=== PATIENT | female | born 1935 | race Caucasian/White ===

== ENCOUNTER 2019-09-04 09:02 | Outpatient (CLI) | payer MEDICARE, SELFPAY ==
--- NOTE | ~2019-09-04 | XR_ITS ---
EXAMINATION: XR barium swallow modified DATE: 09/04/2019 09:43 INDICATION: Dysphagia. TECHNIQUE: The patient was given barium-containing material of multiple consistencies to swallow by lesly bustos speech pathologist while I performed fluoroscopy. Dose-area product was 0.542 Gy-cm2. 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 Please refer to the speech [facility] report [facility] Reviewed, dictated and finalized at [facility]. Reviewed, dictated and finalized at location [facility]. RONMENTAL PROFESSIONAL IMPRESSION: Modified esophagram findings as above. Please refer to the speech t herapy report for specific recommendations.
--- NOTE | 2019-09-04 11:31 | STOPEVAL ---
MODIFIED BARIUM SWALLOW EVALUATION: Thank you for referring this patient to [facility]. Attending Provider: Sebastián Logan MD FAX # [phone] *ST Outpatient Evaluation Start: 09/04/19 11:24 Freq: Status: Active Protocol: Document 09/04/19 11:24 BECHERERT (Rec: 09/04/19 11:31 BECHERERT [id number]) Therapy Assessment Status Assessment Status Assessment Status Evaluation Outpatient Past Medical History Neurological History Hx Transient Ischemic Attacks (TIA) Yes: Cardiovascular History Hx Deep Vein Thrombosis Yes: ARM Hx Hypercholesterolemia Yes: TAKES MED Hx Hypertension Yes: TAKES MEDS Respiratory History Hx Bronchitis Yes: CHRONIC Hx Pleurisy Yes: 09/2018 Hx Pneumonia Yes: HX Gastrointestinal History Hx Gastroesophageal Reflux Disease Yes: TAKES MED Hx Irritable Bowel Yes: WITH DIARRHEA AND CONSTIPATION Hx Other Gastrointestinal Disorders Yes: HX COLONOSCOPY Genitourinary History Hx Other Genitourinary Disorders Yes: SLOW STREAM Musculoskeletal History Hx Arthritis Yes: LT HIP PAIN Hx Gout Yes Hx Joint Replacement Yes: LTHA 1988 AND 2005, RTKA 2016 Hx Orthopedic Surgery Yes: ORIG LT ANKLE 1992, REMOVAL HARDWARE 1994 Hematological History Hx Hematological Disorders No Significant History Endocrine History Hx Diabetes Yes: NIDDM HEENT History Hx Cataracts Yes: BILAT SURG. Hx Tonsillectomy Yes Hx Sinus Problems Yes: CHRONIC Hx Other HEENT Disorders Yes: EXC.EYELID GROWTH Integumentary History Hx Skin Disorders No Significant History Reproductive History Hx Hysterectomy Yes: 1974 Hx Other Reproductive Disorders Yes: D&C X8, EXC.BARTHOLINS CYST, BREAST BX X4 Psychosocial History Hx Psychiatric Disorders No Significant History Pain History Has Past Pain Affected Your Daily Life Yes: LT HIP Anesthesia History Hx Anesthesia Reactions No Significant History Evaluation Information Problem Diagnosis dysphagia Onset several months Subjective Information I feel like something is Query Text:As Reported By Patient/ stuck on the left side of my Family throat. Prior Level of Function Prior Swallow Level Prior Intake Method Oral Prior Diet Regular (Level 7 Diet) Prior Liquid Consistency Thin (Level 0 Diet) Pain Assessment Timing of Pain Assessment Timing of Pain Assessment Assessment Self Report Self Report Pain Level 0 Pain Scale Pain Scale Used Numeric (1 - 10) Pain Score Pain Score
== END 2019-09-04 09:03 | disposition home or self-care (01) ==
LOC: ANHIMG 09:06
PROVIDERS: PCP Family Medicine; Visit Provider Internal Medicine Gastroenterology
DX: R13.10 Dysphagia, unspecified (principal)
CPT/HCPCS: 92611

== ENCOUNTER 2019-09-18 00:26 | Day surgery (SDC) | payer MEDICARE, SELFPAY ==
[2019-09-16 09:06] VITALS: BMI 37.0
[2019-09-18 07:46] VITALS: BP 148/67; PULSE 61; RESP 18; TEMP 36.4; O2SAT 96
[2019-09-18] MEDS: LACTATED RINGERS 1,000 ML 150 ML IV CONT (07:49)
[2019-09-18 08:00] LABS: Glucose Point of Care 115 (65-105)
--- NOTE | 2019-09-18 08:31 | WPDGICN ---
Assessment and Plan Additional Plan This is an 84-year-old white female patient seen in evaluation at the request Dr. Francy Pérez. Patient has difficulty swallowing for several months. She noticed difficulty with both solids and liquids. She feels like food will hang up on the left side of her throat she states some difficulty is been present for about 1 year. Symptoms occur intermittently. When the food hangs up at often causes her to cough gag and show recent modified barium swallow was unremarkable. Patient denies any Weight loss. Patient has a recent history of bronchitis and pleurisy. She had the flu in September of 2018. She recently had procedure by Dr. brennan matthews for chronic sinusitis. She has allergies to latex, Naprosyn, morphine, hydrocortisone, Current medications include Plavix, probiotics, levothyroxine, omeprazole, Onglyza, and propranolol. Physical exam reveals patient to be alert. Oriented x3. HEENT exam reveals deficient gag reflex on the left side of her pharynx. Heart is without murmur or extra sounds. Lungs are clear to auscultation and percussion. Abdominal exam bowel sounds are present soft nontender with no hepatosplenomegaly. Digital external rectal exam deferred day of exam. Impression 1. Dysphagia. 2. Poor gag reflex. Suspect the gag reflex deficiency may contribute to her dysphagia. Recent modified barium swallow was felt to be normal. Plan is for EGD to exclude narrowing of the esophagus. Further recommendations will be given after endoscopy. GI Consult Note Consult date/time: 09/18/19 08:31 HPI: Devon Iraheta is a 84 year old female [facility] Past Medical History Medical History (Updated 08/12/19 @ 09:12 by Rigoberto Apodaca DO) Chronic bronchitis Diabetes type 2, controlled DVT (deep venous thrombosis) 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 Was told no IV or BP in right arm due to damage done by DVT GERD (gastroesophageal reflux disease) Hyperlipidemia Hypertension TIA (transient ischemic attack) Social History Social History Gender identity (if verbalized by the patient): Female Meds Home Medications and Allergies Home Medications Medication Instructions Recorded Confirmed Type Daily Probiotic 1 cap PO DAILY 08/05/19 09/16/19 History Onglyza 2.5 mg PO DAILY 08/05/19 09/16/19 History allopurinol 100 mg PO DAILY 08/05/19 09/16/19 History amlodipine 5 mg PO HS 08/05/19 09/16/19 History aspirin 81 mg PO DAILY 08/05/19 09/16/19 History biotin 1,000 mcg PO DAILY 08/05/19 09/16/19 History cholecalciferol (vitamin D3) 125 mcg PO DAILY 08/05/19 09/16/19 History [Dialyvite Vitamin D] clopidogrel [Plavix] 75 mg PO DAILY 08/05/19 09/16/19 History levothyroxine 50 mcg PO DAILY 08/05/19 09/16/19 History multivitamin [Multiple Vitamins] 1 tablet PO DAILY 08/05/19 09/16/19 History omeprazole 40 mg PO DAILY 08/05/19 09/16/19 History propranolol 120 mg PO DAILY 08/05/19 09/16/19 History acetaminophen-codeine 1 tablet PO Q8H PRN #30 tablet 08/12/19 09/16/19 Rx [Tylenol-Codeine #3] Allergies Allergy/AdvReac Type Severity Reaction Status Date / Time propoxyphene AdvReac Severe NAUSEA Verified 09/16/19 09:00 latex AdvReac Intermediate RED Verified 09/16/19 09:00 BUMPS/ITCH naproxen AdvReac Intermediate NAUSEA/DIZZ Verified 09/16/19 09:00 INESS/RASH morphine AdvReac Mild RASH/ITCHIN Verified 09/16/19 09:00 G thiopental AdvReac Mild INCREASES Verified 09/16/19 09:00 CHOLESTEROL (REVERSE EFFECT) hydrocodone AdvReac Unknown NAUSEA/RASH Verified 09/16/19 09:00 /HEADACHE Vital Signs Vital Signs - 24 hr 09/18/19 07:46 Temperature 36.4 C L Pulse Rate 61 Respiratory Rate 18 Blood Pressure 148/67 H Pulse Oximetry 96
--- NOTE | 2019-09-18 08:32 | WPDANESEPPF ---
Anes - Initial Pre Proc Eval Procedure: Operation Date: 09/18/19 08:30 Proposed Procedures p Esophagogastroduodenoscopy - Sebastián Logan MD Date/Time: 09/18/19 08:32 Surgeon: Sebastián Logan MD Pre Op Diagnosis: Dysphagia Patient Data Age: 84 Gender: F Height: 5 ft 3 in Weight: 96.1 kg Last Vital Signs Temp 97.5 F L 09/18/19 07:46 Pulse 61 09/18/19 07:46 Resp 18 09/18/19 07:46 BP 148/67 H 09/18/19 07:46 Pulse Ox 96 09/18/19 07:46 Allergies Allergy/AdvReac Type Severity Reaction Status Date / Time propoxyphene AdvReac Severe NAUSEA Verified 09/16/19 09:00 latex AdvReac Intermediate RED Verified 09/16/19 09:00 BUMPS/ITCH naproxen AdvReac Intermediate NAUSEA/DIZZ Verified 09/16/19 09:00 INESS/RASH morphine AdvReac Mild RASH/ITCHIN Verified 09/16/19 09:00 G thiopental AdvReac Mild INCREASES Verified 09/16/19 09:00 CHOLESTEROL (REVERSE EFFECT) hydrocodone AdvReac Unknown NAUSEA/RASH Verified 09/16/19 09:00 /HEADACHE Home Medications Medication Instructions Recorded Confirmed Type Daily Probiotic 1 cap PO DAILY 08/05/19 09/16/19 History Onglyza 2.5 mg PO DAILY 08/05/19 09/16/19 History allopurinol 100 mg PO DAILY 08/05/19 09/16/19 History amlodipine 5 mg PO HS 08/05/19 09/16/19 History aspirin 81 mg PO DAILY 08/05/19 09/16/19 History biotin 1,000 mcg PO DAILY 08/05/19 09/16/19 History cholecalciferol (vitamin D3) 125 mcg PO DAILY 08/05/19 09/16/19 History [Dialyvite Vitamin D] clopidogrel [Plavix] 75 mg PO DAILY 08/05/19 09/16/19 History levothyroxine 50 mcg PO DAILY 08/05/19 09/16/19 History multivitamin [Multiple Vitamins] 1 tablet PO DAILY 08/05/19 09/16/19 History omeprazole 40 mg PO DAILY 12/31/19 02/11/20 History propranolol 120 mg PO DAILY 08/05/19 09/16/19 History acetaminophen-codeine 1 tablet PO Q8H PRN #30 tablet 08/12/19 09/16/19 Rx [Tylenol-Codeine #3] Laboratory Tests 09/18/19 07:58 POC Capillary Glucose 115 mg/dl H mg/dl (65-105) Patient hx anesthesia problems: none Family hx anesthesia problems: none [facility] Past Medical History Medical History (Updated 08/12/19 @ 09:12 by Rigoberto Apodaca DO) Chronic bronchitis Diabetes type 2, controlled DVT (deep venous thrombosis) 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 Was told no IV or BP in right arm due to damage done by DVT GERD (gastroesophageal reflux disease) Hyperlipidemia Hypertension TIA (transient ischemic attack) Social History Social History Gender identity (if verbalized by the patient): Female Anes - Eval Final PreProcedure Day of Procedure 09/18/19 08:32 Patient weight: obese Heart: regular rate and rhythm Lungs: clear to auscultation Airway: Mallampati scale class II Neurological: alert and oriented Last oral intake: >/= 8 hours ASA classification: III Emergent: no Anesthetic plan: proceed Anesthesia type and monitoring: general GIVS and standard monitoring Informed Consent: The patient's anesthetic plan and its attendant risks and benefits were discussed with the patient/family/POA. Questions were solicited and answers provided to the satisfaction of the patient/family/POA.
[2019-09-18] MEDS: BENZOCAINE (*SP) 60 ML SPRAY CAN (HURRICAINE) 1 SPRAY MUCOUS MEM (08:48)
[2019-09-18 08:57] VITALS: BP 115/44; PULSE 61; RESP 18; O2SAT 99
[2019-09-18 09:07] VITALS: BP 120/67; PULSE 63; RESP 18; O2SAT 99
[2019-09-18 09:17] VITALS: BP 122/48; PULSE 60; RESP 18; O2SAT 99
== END 2019-09-18 09:40 | disposition home or self-care (01) ==
PROVIDERS: PCP Family Medicine; Visit Provider Internal Medicine Gastroenterology
PROC: 0DJ08ZZ Inspection of Upper Intestinal Tract, Via Natural or Artificial Opening Endoscopic (ICD-10-PCS; CPT 43235; principal; 2019-09-18 08:30)
DX: R13.10 Dysphagia, unspecified (principal); K21.9 Gastro-esophageal reflux disease without esophagitis; I10 Essential (primary) hypertension; E78.5 Hyperlipidemia, unspecified; E11.9 Type 2 diabetes mellitus without complications; J42 Unspecified chronic bronchitis; Z86.73 Personal history of transient ischemic attack (TIA), and cerebral infarction without residual deficits; Z79.02 Long term (current) use of antithrombotics/antiplatelets; Z79.82 Long term (current) use of aspirin; E66.9 Obesity, unspecified; Z68.37 Body mass index [BMI] 37.0-37.9, adult
CPT/HCPCS: 43235; J2704; J7120

== ENCOUNTER 2019-10-14 07:29 | Outpatient (CLI) | payer MEDICARE, SELFPAY ==
--- NOTE | ~2019-10-14 | US_ITS ---
EXAMINATION: US right upper quadrant DATE: 10/14/2019 08:19 INDICATION: Liver mass. Abnormal CT. TECHNIQUE: Multiple grayscale and Doppler ultrasound images of the abdomen were obtained. COMPARISON: Abdomen ultrasound 12/14/2004 FINDINGS: The visualized portions of the head and body of the pancreas are normal. There is diffuse h epatic steatosis. There are cysts in the liver measuring up to 1.7 cm. There is normal flow in main p ortal vein. There are gallstones in the gallbladder, which is normal in size. No gallbladder wall thi ckening or sonographic Romero sign. The common duct is normal and measures 6 mm. IMPRESSION: 1. Benign cysts in the liver. 2. Diffuse hepatic steatosis. 3. Cholelithiasis. No evidence of acute cholecystitis. Reviewed, dictated and finalized at location [facility].
== END 2019-10-14 07:30 | disposition home or self-care (01) ==
PROVIDERS: PCP Family Medicine; Visit Provider Internal Medicine Gastroenterology
DX: K76.0 Fatty (change of) liver, not elsewhere classified (principal); K80.20 Calculus of gallbladder without cholecystitis without obstruction
CPT/HCPCS: 76705

== ENCOUNTER 2020-04-13 03:40 | Inpatient (IN) | payer MEDICARE, SELFPAY ==
[2020-04-13] VITALS (7 sets, daily range): BP systolic 137–157; BP diastolic 48–79; PULSE 60–67; RESP 12–18; TEMP 36.1–36.6; O2SAT 96–100; BMI 36.9
--- NOTE | ~2020-04-13 | XR_ITS ---
EXAMINATION: XR cholangiogram surg 1st inj DATE: 04/14/2020 12:54 INDICATION: Laparoscopic cholecystectomy TECHNIQUE: 306 fluoroscopic images of the right upper quadrant were obtained during intraoperative ch olangiography performed by the surgeon. I was not present in the operating room. Fluoroscopy exposure time was 49.3 seconds. COMPARISON: None. FINDINGS: Fluoroscopic images demonstrate a mildly dilated common bile duct. There is mild stricturin g of the distal duct as it enters the duodenum. No stones are identified. IMPRESSION: 1. Case discussed with Dr. Urena in the operating room. Reviewed, dictated and finalized at location B.
--- NOTE | ~2020-04-13 | NM_ITS ---
EXAMINATION: [place] hepatobiliary wo pharm EXAM DATE: 04/13/2020 16:25 INDICATION: Sonographic Romero's sign ultrasound. Right upper quadrant pain. TECHNIQUE: 5 mCi Tc-99m mebrofenin (Choletec) was administered intravenously. Scintigraphic images o f the abdomen were obtained for one hour. An additional 4 hour delayed image was also obtained. FINDINGS: There is normal clearance of radiotracer from the blood pool. There is homogeneous tracer u ptake by the liver. No common bile duct activity, gallbladder activity or small bowel activity identi fied on the initial 60 minutes of imaging and also on the 4 hour delayed image. This is consistent wi th high-grade common bile duct obstruction. IMPRESSION: Nonfilling biliary system consistent with high-grade common bile duct obstruction. Reviewed, dictated and finalized at location A. IMPRESSION: Nonfilling biliary system consistent with high-grade common bile du ct obstruction.
--- NOTE | ~2020-04-13 | CT_ITS ---
EXAMINATION: CT abdomen pelvis w con INDICATION: Right upper quadrant pain TECHNIQUE: Computed tomographic images of the abdomen and pelvis were obtained after the administrati on of 100 cc of Omnipaque 350 intravenous contrast. The dose-length product (DLP) was 1169.68 mGy-cm. Automated exposure control and iterative reconstruction technique were employed. COMPARISON: None available FINDINGS: Minimal dependent atelectasis is present in the lung bases. The heart size is normal. Cysts of the liver measure up to 1.8 cm in the right hepatic lobe. Punctate calcifications in an otherwise normal spleen likely represent healed granulomatous disease. The gallbladder is dilated. The common bile duct is also dilated measuring up to 11 mm. There is a 6 mm cystic lesion in the body of the chopra creas. There are nodules of the adrenal glands which measure up to 1.8 cm on the left. Cysts of the l eft kidney measure up to 2.6 cm. The right kidney is unremarkable. There is calcified atherosclerosis of the aorta and many of the other arteries. The appendix is normal. No pathologically enlarged abdo lennox or pelvic lymph nodes are identified. There is no free intraperitoneal gas or evidence of bowel obstruction. There appears to be wall thickening in the body of the stomach. There is severe lumbar spondylosis. IMPRESSION: 1. Gallbladder distention, indeterminate for cholecystitis. Follow-up ultrasound has been performed a t the time of interpretation. 2. 6 mm cystic lesion in the body of the pancreas. The differential diagnosis includes pseudocyst, in traductal papillary mucinous neoplasm (IPMN), mucinous cystic neoplasm (MCN), and the less common ser ous cystadenoma and neuroendocrine tumor. Correlate for history of pancreatitis. Follow-up pancreas p rotocol CT or MRI in two years is recommended. 3. Mildly enlarged common bile duct of unclear etiology. 4. Possible gastric wall thickening which could be due to incomplete distention. Consider upper GI or endoscopy. 5. Bilateral adrenal nodules, likely adenomas in the absence of known malignancy. Reviewed, dictated and finalized at location B. IMPRESSION: 1. Gallbladder distention, indeterminate for cholecystitis. Follow-up ultrasoun d has been performed at the time of interpretation. 2. 6 mm cystic lesion in the body of the pancreas. The differential diagnosis i ncludes pseudocyst, intraductal papillary mucinous neoplasm (IPMN), mucinous cy stic neoplasm (MCN), and the less common serous cystadenoma and neuroendocrine tumor. Correlate for history of pancreatitis. Follow-up pancreas protocol CT or MRI in two years is recommended. 3. Mildly enlarged common bile duct of unclear etiology. 4. Possible gastric wall thickening which could be due to incomplete distention . Consider upper GI or endoscopy. 5. Bilateral adrenal nodules, likely adenomas in the absence of known malignanc y.
--- NOTE | ~2020-04-13 | US_ITS ---
EXAMINATION: [place] right upper quadrant DATE: 04/13/2020 07:48 INDICATION: Right upper quadrant abdominal pain. TECHNIQUE: Multiple grayscale and Doppler ultrasound images of the abdomen were obtained. COMPARISON: 10/14/[address] dated 04/13/2020 FINDINGS: 6 mm cystic lesion at the body of the pancreas. Liver has normal echogenicity and contour, with a smo oth surface. 13 mm anechoic septated cyst in the right hepatic lobe. No intrahepatic biliary duct dil ation suspected. Portal venous flow was seen in the hepatopetal, normal direction and has normal Dopp ler waveform. Gallbladder is dilated to 4.3 cm with mild wall thickening. There are couple tiny hyper echoic foci with comet tailing along the nondependent gallbladder wall consistent with focal adenomyo matosis. There multiple shadowing gallstones at the neck and along the dependent wall of the gallblad petrona. Sonographic Romero sign was reported as positive by the grails web application developer. The common bile duct measur es up to 6 mm diameter which is normal which is decreased since the recent CT at which time it measur ed 10 mm in diameter. The visualized proximal inferior vena cava is normal. IMPRESSION: 1. Mildly dilated gallbladder with mild wall thickening, cholelithiasis and positive sonographic Murp hy's and consistent with acute cholecystitis. 2. 6 mm cystic lesion at the body of the pancreas. Recommend two-year follow-up pre and postcontrast MRI or pancreas protocol CT. Reviewed, dictated and finalized at location A. IMPRESSION: 1. Mildly dilated gallbladder with mild wall thickening, cholelithiasis and pos itive sonographic Romero's and consistent with acute cholecystitis. 2. 6 mm cystic lesion at the body of the pancreas. Recommend two-year follow-up pre and postcontrast MRI or pancreas protocol CT.
[2020-04-13] MEDS: SODIUM CHLORIDE 0.9% IV 500 ML 999 ML IV CONT (04:13)
[2020-04-13] MEDS: ONDANSETRON INJ 4 MG/2 ML VIAL IV PUSH ×2 (04:13→08:22)
[2020-04-13 04:19] LABS: Basophils Absolute Auto 0.1 K/mm3 (0.0-0.1); Basophils Percent Auto 0.4 % (0.2-1.2); Eosinophils Absolute Auto 0.1 K/mm3 (0-0.3); Eosinophils Percent Auto 0.7 % (0-4.4); Hematocrit 39.2 % (37.0-47.0); Hemoglobin 12.7 g/dL (12.0-15.0); Immature Granulocyte Absolute 0.08 K/mm3 (0.00-0.031); Immature Granulocyte Percent A 0.5 % (0-0.5); Lymphocytes Absolute Auto 2.36 K/mm3 (0.9-3.2); Lymphocytes Percent Auto 15.5 % (18.3-44.2); Mean Corpuscular HGB Conc 32.4 g/dl (32-36); Mean Corpuscular Hemoglobin 32.5 pg (26-34); Mean Corpuscular Volume 100.3 fl (80-100); Monocytes Absolute Auto 0.7 K/mm3 (0.1-0.6); Monocytes Percent Auto 4.3 % (2.6-8.5); Neutrophils Percent Auto 78.6 % (45.5-73.1); Platelet Count Result 274 k/mm3 (150-375); Red Blood Count 3.91 M/mm3 (4.2-5.4); Red Cell Distribution Width 13.6 % (11.5-14.5); White Blood Count 15.3 K/mm3 (4.5-10.0)
[2020-04-13 04:33] LABS: Alanine Aminotransferase 77 U/L (4-35); Albumin Level 4.2 g/dL (3.5-5.1); Alkaline Phosphatase 103 U/L (38-126); Anion Gap 8 mmol/L (8-16); Aspartate Amino Transferase 212 U/L (14-36); Bilirubin,Total 0.7 mg/dL (0.2-1.3); Blood Urea Nitrogen 22 mg/dL (7-17); Calcium 9.1 mg/dL (8.4-10.2); Carbon Dioxide 27 mmol/L (22-30); Chloride 102 mmol/L (98-107); Estimated Glomerular Filt Rate 48; Glucose 149 mg/dL (65-105); Lipase 199 U/L (23-300); Sodium 137 mmol/L (137-145)
--- NOTE | 2020-04-13 04:55 | ED.GENADULT ---
HPI - General Adult General Chief complaint: Nausea/Vomiting/Diarrhea Stated complaint: nausea Time Seen by Provider: 04/13/20 03:50 History of Present Illness HPI narrative: Patient is an 84-year-old female who presents the ER with epigastric pain. Sudden onset earlier in the evening. Associated with some nausea and vomiting. No fevers or chills or sweats. Has history of cholelithiasis but has never had pain related to this. Reports she feels a band across her upper abdomen going into her back. She has no alleviating factors. It was not associated with eating. Patient did have a all beef hotdog for dinner and then had had a hamburger earlier in the day. She also had some cake. Related Data Home Medications Medication Instructions Recorded Confirmed Daily Probiotic 1 cap PO DAILY 08/05/19 09/16/19 Onglyza 2.5 mg PO DAILY 08/05/19 09/16/19 allopurinol 100 mg PO DAILY 08/05/19 09/16/19 amlodipine 5 mg PO HS 08/05/19 09/16/19 aspirin 81 mg PO DAILY 08/05/19 09/16/19 biotin 1,000 mcg PO DAILY 08/05/19 09/16/19 cholecalciferol (vitamin D3) 125 mcg PO DAILY 08/05/19 09/16/19 [Dialyvite Vitamin D] clopidogrel [Plavix] 75 mg PO DAILY 08/05/19 09/16/19 levothyroxine 50 mcg PO DAILY 08/05/19 09/16/19 multivitamin [Multiple Vitamins] 1 tablet PO DAILY 08/05/19 09/16/19 omeprazole 40 mg PO DAILY 08/05/19 09/16/19 propranolol 120 mg PO DAILY 08/05/19 09/16/19 Allergies Allergy/AdvReac Type Severity Reaction Status Date / Time propoxyphene AdvReac Severe NAUSEA Verified 04/13/20 04:06 latex AdvReac Intermediate RED Verified 04/13/20 04:06 BUMPS/ITCH naproxen AdvReac Intermediate NAUSEA/DIZZ Verified 04/13/20 04:06 INESS/RASH morphine AdvReac Mild RASH/ITCHIN Verified 04/13/20 04:06 G thiopental AdvReac Mild INCREASES Verified 04/13/20 04:06 CHOLESTEROL (REVERSE EFFECT) hydrocodone AdvReac Unknown NAUSEA/RASH Verified 04/13/20 04:06 /HEADACHE Review of Systems Review of Systems: All systems reviewed & are unremarkable except as noted in HPI and below Constitutional: Constitutional: Denies chills, Denies fever(s) and Denies weakness ENT: Denies nasal congestion and Denies sore throat Cardiovascular: Cardiovascular: Denies chest pain and Denies radiating jaw, neck or arm pain Gastrointestinal: Gastrointestinal: Reports abdominal pain, Denies diarrhea, Reports nausea and Reports vomiting Genitourinary: Genitourinary: Denies nocturia, Denies dysuria and Denies flank pain PMFSH Past Medical History Medical History (Updated 04/13/20 @ 06:04 by Presley Calix MD) Chronic bronchitis Diabetes type 2, controlled DVT (deep venous thrombosis) 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 Was told no IV or BP in right arm due to damage done by DVT GERD (gastroesophageal reflux disease) Hyperlipidemia Hypertension TIA (transient ischemic attack) Surgical History Surgical History (Updated 04/13/20 @ 04:58 by Presley Calix MD) History of left hip replacement Hx of tonsillectomy Social History Social History Gender identity (if verbalized by the patient): Female Exam Narrative: Exam Narrative: GENERAL: Well-appearing, well-nourished, and in no acute distress. HEAD: Normocephalic, atraumatic. ENT: Mucous membranes moist. CHEST: Clear to auscultation. No respiratory distress. HEART: Regular rate and rhythm. Normal peripheral pulses. ABDOMEN: Soft, tender palpation in the epigastrium with guarding and positive Romero sign and right upper quadrant, nondistended. EXTREMITIES: Normal range of motion. No edema. SKIN: Warm, dry, no rash. NEURO: Alert and oriented x3. Course Course Emergency Course: Patient with persistent pain after fentanyl. Liver enzymes elevated which could be related to gallbladder pathology. CT scan shows severe wall thickening of the stomach and dilated common bile duct. Patient had an EGD earlier this year that showed a normal stomach. Stomach wall thickening
--- NOTE | 2020-04-13 05:48 | PC.NURSE ---
pt sleeping on stretcher at this time. pt's daughter remains at bedside-updated on poc, denies any needs/concerns. pt remains hooked up to monitor. will continue to monitor pt for baseline status changes.
--- NOTE | 2020-04-13 08:10 | PC.NURSE ---
This patient, Devon Iraheta, was admitted to Medical Room 346-01. Patient/family oriented to hospital policies and general routines including ID bracelet, bed and alarms, visiting hours, pain management, procedures, bathroom and other care routines, personal items, smoking policy, room service/diet, and visiting hours. Valuables list has been completed. Information on how to activate the Rapid Response Team has been discussed. Patient/Family are encouraged to report perceived risks to care and to ask questions if they do not understand what they are told or what they should do.
[2020-04-13] MEDS: SODIUM CHLORIDE 0.9% IV 1,000 ML 125 ML IV CONT ×2 (08:19→17:08)
--- NOTE | 2020-04-13 09:04 | WPDGICN ---
Assessment and Plan Assessment and plan (1) Gastric wall thickening: Code(s): K31.89 - Other diseases of stomach and duodenum Status: Acute Assessment and Plan: CT scan suggest gastric wall thickening. The etiology of this remains somewhat unclear. EGD in September was unremarkable. Plan is for repeat EGD in the morning. We will maintain patient on proton pump inhibitor. Differential diagnosis includes infection or ulceration. Versus malignancy which is felt unlikely. (2) Acute upper abdominal pain: Code(s): R10.10 - Upper abdominal pain, unspecified Status: Acute Assessment and Plan: Abdominal pain of uncertain etiology. A long with abnormal CT scan suggesting thick stomach she has elevated LFTs and gallstones. Plan is for a HIDA scan to exclude cholecystitis. Continue monitor LFTs. Hepatitis serologies will be obtained. (3) Gallstones: Code(s): K80.20 - Calculus of gallbladder without cholecystitis without obstruction Status: Acute Assessment and Plan: Gallstones noted by ultrasound. Along with LFTs make this is somewhat of a concern. HIDA scan will be obtained to exclude cholecystitis. Patient does indeed have leukocytosis suggesting inflammatory process. (4) Elevated LFTs: Code(s): R79.89 - Other specified abnormal findings of blood chemistry Status: Acute Assessment and Plan: Elevated LFTs. Plan is check HIDA scan. This may be related to cholelithiasis. Plan to exclude cholecystitis. Patient gives no alcohol history. Will monitor and obtain hepatitis serologies as well. GI Consult Note Consult date/time: 04/13/20 09:04 HPI: Devon Iraheta is a 84 year old female Seen in evaluation at the request of the emergency room. Patient reports epigastric pain that began last evening. Associated with some nausea and vomiting. She denies any fever. This pain is new she has never had this pain before. She is known to have underlying history of gallstones. She states last evening 8 hot dog for dinner and a hamburger earlier in the day. But nothing unusual for her. She feels somewhat improved on at the time I history because she had received pain injection in the emergency room. Patient reports no recent difficulty swallowing. An EGD in September of 2019 was unremarkable. Review of Systems Review of Systems: All systems reviewed & are unremarkable except as noted in HPI and below PMFSH Past Medical History Medical History Chronic bronchitis Diabetes type 2, controlled DVT (deep venous thrombosis) 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 Was told no IV or BP in right arm due to damage done by DVT GERD (gastroesophageal reflux disease) Hyperlipidemia Hypertension TIA (transient ischemic attack) Surgical History Surgical History History of left hip replacement Hx of tonsillectomy Social History Social History Gender identity (if verbalized by the patient): Female Meds Home Medications and Allergies Home Medications Medication Instructions Recorded Confirmed Type Daily Probiotic 1 cap PO DAILY 08/05/19 09/16/19 History Onglyza 2.5 mg PO DAILY 08/05/19 09/16/19 History allopurinol 100 mg PO DAILY 08/05/19 09/16/19 History amlodipine 5 mg PO HS 08/05/19 09/16/19 History aspirin 81 mg PO DAILY 08/05/19 09/16/19 History biotin 1,000 mcg PO DAILY 08/05/19 09/16/19 History cholecalciferol (vitamin D3) 125 mcg PO DAILY 08/05/19 09/16/19 History [Dialyvite Vitamin D] clopidogrel [Plavix] 75 mg PO DAILY 08/05/19 09/16/19 History levothyroxine 50 mcg PO DAILY 08/05/19 09/16/19 History multivitamin [Multiple Vitamins] 1 tablet PO DAILY 08/05/19 09/16/19 History omeprazole 40 mg PO DAILY 08/05/19 09/16/19 History propranolol 120 mg PO DAILY 08/05/19 09/16/19 History acetaminophen-cod
[2020-04-13 11:26] LABS: Hepatitis B Surface Antigen Negative (Negative)
[2020-04-13 11:35] LABS: HAV RESULT Negative (Negative); Hepatitis B Core IgM Result Negative (Negative)
--- NOTE | 2020-04-13 11:40 | ECG_ITS ---
Measurements Intervals [place] Rate: 64 P: 73 AK: 131 QRS: -16 QRSD: 94 T: 60 QT: 397 QTc: 410 Interpretive Statements SINUS RHYTHM BASELINE WANDER- I, II, AVR, AVL NORMAL ECG Electronically Signed On 04-13-2020 11:44:27 CDT by Elan Blair D.O.
[2020-04-13 11:44] LABS: Hepatitis C Virus Antibody Negative (Negative)
[2020-04-13 12:53] LABS: Glucose Point of Care 123 (65-105)
--- NOTE | 2020-04-13 16:30 | PM.IMHP ---
H&P: HPI History of Present Illness Date/Time: 04/13/20 16:30 Chief complaint: Intractable pain/transaminitis/gastric wall thicke Narrative: Devon Iraheta is a 84 year old female having severe pain starting at 1230 midnight waking her from her sleep on the right upper quadrant history of gerd and gallstones. Pts pain is better after fluids and pain shot. Pt seen by GI is going for HIDA scan [place]. Review of Systems Review of Systems: All systems reviewed & are unremarkable except as noted in HPI and below Cardiovascular: Cardiovascular: Denies no additional cardiovascular complaints Respiratory: Respiratory: Denies no additional respiratory complaints Gastrointestinal: Gastrointestinal: Reports abdominal pain, Reports bloating, Reports dyspepsia and Reports nausea Neurologic: Denies system reviewed and no additional complaints, except as documented Psychiatric: Psychiatric: Denies no additional psychiatric complaints [facility] Past Medical History Medical History Chronic bronchitis Diabetes type 2, controlled DVT (deep venous thrombosis) 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 Was told no IV or BP in right arm due to damage done by DVT GERD (gastroesophageal reflux disease) Hyperlipidemia Hypertension TIA (transient ischemic attack) Surgical History Surgical History History of left hip replacement Hx of tonsillectomy Social History Social History Smoking status: Never smoker Alcohol intake: former Substance use: never Gender identity (if verbalized by the patient): Female Spiritual care concerns: No Meds Home Medications and Allergies Home Medications Medication Instructions Recorded Confirmed Type Daily Probiotic 1 cap PO DAILY 08/05/19 04/13/20 History Onglyza 2.5 mg PO DAILY 08/05/19 04/13/20 History allopurinol 100 mg PO DAILY 08/05/19 04/13/20 History amlodipine 5 mg PO HS 08/05/19 04/13/20 History aspirin 81 mg PO DAILY 08/05/19 04/13/20 History biotin 1,000 mcg PO DAILY 08/05/19 04/13/20 History clopidogrel [Plavix] 75 mg PO DAILY 08/05/19 04/13/20 History levothyroxine 50 mcg PO DAILY 08/05/19 04/13/20 History multivitamin [Multiple Vitamins] 1 tablet PO DAILY 08/05/19 04/13/20 History omeprazole 40 mg PO DAILY 08/05/19 04/13/20 History propranolol 120 mg PO DAILY 08/05/19 04/13/20 History acetaminophen-codeine 1 tablet PO Q8H PRN #30 tablet 08/12/19 04/13/20 Rx [Tylenol-Codeine #3] cholecalciferol (vitamin D3) 25 mcg PO DAILY 04/13/20 04/13/20 History [Vitamin D3] Allergies Allergy/AdvReac Type Severity Reaction Status Date / Time propoxyphene AdvReac Severe NAUSEA Verified 04/13/20 04:06 latex AdvReac Intermediate RED Verified 04/13/20 04:06 BUMPS/ITCH naproxen AdvReac Intermediate NAUSEA/DIZZ Verified 04/13/20 04:06 INESS/RASH morphine AdvReac Mild RASH/ITCHIN Verified 04/13/20 04:06 G thiopental AdvReac Mild INCREASES Verified 04/13/20 04:06 CHOLESTEROL (REVERSE EFFECT) hydrocodone AdvReac Unknown NAUSEA/RASH Verified 04/13/20 04:06 /HEADACHE Vital Signs Vital Signs - 24 hr 04/13/20 03:46 04/13/20 05:48 04/13/20 06:25 Temperature 36.4 C Pulse Rate 62 65 62 Respiratory Rate 12 16 16 Blood Pressure 146/74 H 152/64 H 157/66 H Pulse Oximetry 100 99 99 04/13/20 06:58 04/13/20 08:26 04/13/20 14:36 Temperature 36.6 C 36.1 C L Pulse Rate 64 65 67 Respiratory Rate 18 16 16 Blood Pressure 137/66 149/79 H 152/48 H Pulse Oximetry 96 100 100 Exam Const: General: tired appearing and other (elderly lady ) HENMT: Head: normocephalic Eyes: General: appearance normal, both eyes and all related structures Pupils: Equal, round and reactive pupils present Neck: Neck: supple Chest: Chest palpation & inspection: normal inspection of the chest Resp: Effort & Ins
[2020-04-13 17:30] LABS: Glucose Point of Care 106 (65-105)
[2020-04-13] MEDS: amLODIPine BESYLATE 5 MG TABLET PO (21:13)
[2020-04-13 22:29] LABS: Glucose Point of Care 97 (65-105)
[2020-04-14] VITALS (15 sets, daily range): BP systolic 96–179; BP diastolic 45–79; PULSE 51–100; RESP 11–22; TEMP 36.1–36.8; O2SAT 93–100
[2020-04-14] MEDS: SODIUM CHLORIDE 0.9% IV 1,000 ML 125 ML IV CONT (02:03)
[2020-04-14] MEDS: LEVOTHYROXINE SODIUM 50 MCG TABLET PO (05:37)
[2020-04-14 05:57] LABS: Hematocrit 32.1 % (37.0-47.0); Hemoglobin 10.4 g/dL (12.0-15.0); Mean Corpuscular HGB Conc 32.4 g/dl (32-36); Mean Corpuscular Hemoglobin 32.1 pg (26-34); Mean Corpuscular Volume 99.1 fl (80-100); Mean Platelet Volume 10.3 fl (7.4-10.4); Platelet Count Result 194 k/mm3 (150-375); Red Blood Count 3.24 M/mm3 (4.2-5.4); Red Cell Distribution Width 13.6 % (11.5-14.5); White Blood Count 8.1 K/mm3 (4.5-10.0)
[2020-04-14 06:06] LABS: Partial Thromboplastin Time 27.7 SECONDS (22.3-36.8)
[2020-04-14 06:07] LABS: Alanine Aminotransferase 459 U/L (4-35); Albumin Level 3.1 g/dL (3.5-5.1); Alkaline Phosphatase 126 U/L (38-126); Aspartate Amino Transferase 499 U/L (14-36); Bilirubin Direct 1.1 mg/dL (0-0.3); Bilirubin,Total 3.1 mg/dL (0.2-1.3)
[2020-04-14 06:18] LABS: Alanine Aminotransferase 452 U/L (4-35); Albumin Level 2.9 g/dL (3.5-5.1); Alkaline Phosphatase 117 U/L (38-126); Anion Gap 4 mmol/L (8-16); Aspartate Amino Transferase 510 U/L (14-36); Bilirubin,Total 3.2 mg/dL (0.2-1.3); Blood Urea Nitrogen 12 mg/dL (7-17); Calcium 8.3 mg/dL (8.4-10.2); Carbon Dioxide 26 mmol/L (22-30); Chloride 108 mmol/L (98-107); Estimated CRCL calculation 45 ml/min; Estimated Glomerular Filt Rate 60; Glucose 104 mg/dL (65-105); Potassium 3.7 mmol/L (3.4-5.0); Sodium 138 mmol/L (137-145)
[2020-04-14 07:29] LABS: Glucose Point of Care 97 (65-105)
--- NOTE | 2020-04-14 08:05 | WPDANESEPPF ---
Anes - Initial Pre Proc Eval Procedure: Operation Date: 04/14/20 08:30 Proposed Procedures p Esophagogastroduodenoscopy - Sebastián Logan MD Date/Time: 04/14/20 08:05 Surgeon: Arianna Virgen PA-C Pre Op Diagnosis: Intractable pain/transaminitis/gastric wall thicke Patient Data Age: 84 Gender: F Height: 5 ft 2 in Weight: 91.7 kg Last Vital Signs Temp 36.5 C 04/14/20 04:16 Pulse 63 04/14/20 04:16 Resp 16 04/14/20 04:16 BP 154/47 H 04/14/20 04:16 Pulse Ox 94 04/14/20 04:16 Allergies Allergy/AdvReac Type Severity Reaction Status Date / Time propoxyphene AdvReac Severe NAUSEA Verified 04/13/20 04:06 latex AdvReac Intermediate RED Verified 04/13/20 04:06 BUMPS/ITCH naproxen AdvReac Intermediate NAUSEA/DIZZ Verified 04/13/20 04:06 INESS/RASH morphine AdvReac Mild RASH/ITCHIN Verified 04/13/20 04:06 G thiopental AdvReac Mild INCREASES Verified 04/13/20 04:06 CHOLESTEROL (REVERSE EFFECT) hydrocodone AdvReac Unknown NAUSEA/RASH Verified 04/13/20 04:06 /HEADACHE Home Medications Medication Instructions Recorded Confirmed Type Daily Probiotic 1 cap PO DAILY 08/05/19 04/13/20 History Onglyza 2.5 mg PO DAILY 08/05/19 04/13/20 History allopurinol 100 mg PO DAILY 08/05/19 04/13/20 History amlodipine 5 mg PO HS 08/05/19 04/13/20 History aspirin 81 mg PO DAILY 08/05/19 04/13/20 History biotin 1,000 mcg PO DAILY 08/05/19 04/13/20 History clopidogrel [Plavix] 75 mg PO DAILY 08/05/19 04/13/20 History levothyroxine 50 mcg PO DAILY 08/05/19 04/13/20 History multivitamin [Multiple Vitamins] 1 tablet PO DAILY 08/05/19 04/13/20 History omeprazole 40 mg PO DAILY 08/05/19 04/13/20 History propranolol 120 mg PO DAILY 08/05/19 04/13/20 History acetaminophen-codeine 1 tablet PO Q8H PRN #30 tablet 08/12/19 04/13/20 Rx [Tylenol-Codeine #3] cholecalciferol (vitamin D3) 25 mcg PO DAILY 04/13/20 04/13/20 History [Vitamin D3] Laboratory Tests 04/13/20 04/13/20 04/13/20 04:13 12:49 17:10 WBC RBC Hgb Hct MCV MCH MCHC RDW Plt Count MPV APTT Sodium Potassium Chloride Carbon Dioxide Anion Gap BUN Creatinine Estim Creat Clear Calc Estimated GFR Glucose POC Capillary Glucose 123 mg/dl H mg/dl 106 mg/dl mg/dl (65-105) (65-105) Calcium Total Bilirubin Direct Bilirubin AST ALT Alkaline Phosphatase Total Protein Albumin Hepatitis A IgM Ab Negative (Negative) Hep Bs Antigen Negative (Negative) Hep B Core IgM Ab Negative (Negative) Hepatitis C Ab Screen Negative (Negative) 04/13/20 04/14/20 04/14/20 21:19 05:11 05:11 WBC 8.1 K/mm3 K/mm3 (4.5-10.0) RBC 3.24 M/mm3 L M/mm3 (4.2-5.4) Hgb 10.4 g/dL L g/dL (12.0-15.0) Hct 32.1 % L % (37.0-47.0) MCV 99.1 fl fl (80-100) MCH 32.1 pg pg (26-34) MCHC 32.4 g/dl g/dl (32-36) RDW 13.6 % % (11.5-14.5) Plt Count 194 k/mm3 k/mm3 (150-375) MPV 10.3 fl fl (7.4-10.4) APTT Sodium 138 mmol/L mmol/L (137-145) Potassium 3.7 mmol/L mmol/L (3.4-5.0) Chloride 108 mmol/L H mmol/L (98-107) Carbon Dioxide 26 mmol/L mmol/L (22-30) Anion Gap 4 mmol/L L mmol/L (8-16) BUN 12 mg/dL D mg/dL (7-17) Creatinine 0.90 mg/dL mg/dL (0.7-1.0) Estim Creat Clear Calc 45 ml/min ml/min Estimated GFR 60 (59 - ) Glucose 104 mg/dL mg/dL (65-105) POC Capillary Glucose 97 mg/dl mg/dl (65-105) Beau
[2020-04-14] MEDS: LACTATED RINGERS 1,000 ML 150 ML IV CONT (08:07)
[2020-04-14 08:11] LABS: Glucose Point of Care 96 (65-105)
--- NOTE | 2020-04-14 09:08 | WPDGIPROGNO ---
Progress Note: A&P Additional Plan Patient comfortable this morning. Reports no additional pain. Physical exam reveals her to be alert. Vital signs stable. She is anicteric. Lungs are clear. Heart without murmur. Abdomen soft and nontender. Labs reveal WBC now normalized. Total bilirubin 3.1, direct bilirubin 1.1, AST 499, ALT 459, alk-phos 126. HIDA scan suggest high-grade biliary obstruction. Ultrasound confirms gallstones. CT scan with thickened stomach. Pancreatic cyst in the body measuring 6mm size. EGD today reveals gastric polyps. But no significant pathology. Likely polyps contribute to thickening seen on CT scan. Histology pending but no specific ferritin therapy felt warranted. Impression 1. Epigastric pain. Now resolved. Likely related to gallstones. Cholecystitis possible CBD stone given the high-grade bili obstruction on HIDA scan. Plan is for surgery consultation. Broad-spectrum antibiotic coverage in ERCP will be planned in the morning. 2. Gallstones. Possible cholecystitis and possible common duct stone identified. ERCP in the morning. Surgical opinion pending. 3. Gastric polyps. No specific therapy felt warranted histology pending. 4. 6Mm pancreatic cyst in pancreatic body. This is nonspecific finding. Follow-up CT scan is suggested in 1-2 years. Subjective Date/time seen: 04/14/20 09:08 Objective Data Vital Signs Vital Signs: Vital Signs - 24 hr 04/13/20 14:36 04/13/20 20:34 04/14/20 00:00 Temperature 96.9 F L 98 F 98.3 F Pulse Rate 67 60 55 L Respiratory Rate 16 16 14 Blood Pressure 152/48 H 142/56 H 144/45 H Pulse Oximetry 100 98 96 04/14/20 04:16 04/14/20 08:12 Temperature 97.7 F 97.4 F L Pulse Rate 63 63 Respiratory Rate 16 20 Blood Pressure 154/47 H 148/51 H Pulse Oximetry 94 94 Intake/Output Intake/Output: Intake & Output 04/11/20 04/12/20 04/13/20 04/14/20 23:59 23:59 23:59 23:59 Intake Total 1700 1650 Output Total 1500 850 Balance 200 800 Meds/Results Medications: Active Medications Generic Name Dose Route Start Last Admin Trade Name Freq PRN Reason Stop Dose Admin Acetaminophen/Codeine Phosphate 1 tab 04/13/20 16:34 Tylenol #3 PO Q8H PRN MODERATE PAIN 4-6 Amlodipine Besylate 5 mg 04/13/20 21:00 04/13/20 21:13 Norvasc PO 5 mg HS SARA Administration Dextrose 12.5 gm 04/13/20 16:34 Dextrose 50% Syringe IV PUSH PRN PRN Hypoglycemia Protocol Fentanyl Citrate 50 mcg 04/13/20 06:02 04/13/20 06:32 Sublimaze IV PUSH 50 mcg Q2H PRN Administration Pain Rated 7-10 Glucagon 1 mg 04/13/20 16:34 Glucagon For Inj IM PRN PRN Hypoglycemia Protocol Glucose 15 gm 04/13/20 16:34 Glutose 15 PO PRN PRN Hypoglycemia Protocol Dextrose 1,000 mls @ 100 mls/hr 04/13/20 16:34 Dextrose 5% 1,000 Ml IVPB PRN PRN Hypoglycemia Protocol Lactated Ringer's 1,000 mls @ 150 mls/hr 04/14/20 07:05 04/14/20 09:07 Lr - Lactated Ringers Iv IV CONT 150 mls/hr .Q6H40M [facility] Infusion Piperacillin/Tazobactam/Dextrose 3.375 gm in 50 mls @ 100 mls/hr 04/14/20 09:00 Zosyn 3.375 Gm/D5w 50ml Pm IVPB Q6H [facility] Insulin Aspart 2 - 5 units 04/13/20 17:00 04/14/20 07:27 Novolog SUB-Q Not Given TIDWM [facility] Protocol Levothyroxine Sodium 50 mcg 04/14/20 06:30 04/14/20 05:37 Synthroid PO 50 mcg DAILY@0630 [facility] Administration Ondansetron HCl 4 mg 04/13/20 06:02 04/13/20 08:22 Zofran Inj IV PUSH 4 mg Q4H PRN Administration Nausea Pantoprazole Sodium 40 mg 04/14/20 09:00 Protonix PO QAM [facility] Propranolol HCl 120 mg 04/14/20 09:00 Inderal La PO 05/14/20 09:01 DAILY [facility] Radiology Results: ITS Impressions Upper Quadrant Ultrasound 04/13/20 07:56 IMPRESSION: 1. Mildly dilated gallbladder with mild wall thickening, cholelithiasis and positive sonographic Murp
--- NOTE | 2020-04-14 10:03 | PM.CNGS ---
Assessment and Plan Assessment and plan (1) Cholelithiasis and cholecystitis with obstruction: Code(s): K80.19 - Calculus of gallbladder with other cholecystitis with obstruction Status: Acute Assessment and Plan: EGD today shows no evidence of gastric malignancy. Will try to go ahead with laparoscopic cholecystectomy with intraoperative cholangiogram. The procedure the risks the benefits have been discussed with the patient. All questions were answered. She understands and agrees to go ahead. (2) Abnormal biliary HIDA scan: Code(s): R94.8 - Abnormal results of function studies of other organs and systems Status: Acute Assessment and Plan: HIDA scan shows not only nonvisualization of the gallbladder which was expected but also no filling of the common bile duct which was somewhat unexpected. Will get cholangiogram and there are tentative plans to proceed with ERCP tomorrow per Dr. Logan. (3) Diabetes type 2, controlled: Code(s): E11.9 - Type 2 diabetes mellitus without complications Status: Acute (4) Hypertension: Code(s): I10 - Essential (primary) hypertension Status: Acute History of Present Illness Consult details Consult date: 04/14/20 Reason for consult: gallstones Narrative: Patient is an 84-year-old woman who about midnight the night before last was awakened with severe right upper quadrant abdominal pain, nausea and vomiting. She had had a hot dog for supper. She has a history of reflux disease and gallstones in the past. Her CT scan showed not only some gallstones and evidence of cholecystitis but some thickened wall of the stomach. She had an EGD earlier today by Dr. Logan which showed no evidence of a cancer. There were some semipedunculated polyps in the fundus of the stomach which were biopsied. The patient had an ultrasound which showed gallbladder wall thickening, gallstones and a positive sonographic Romero sign. She had elevated liver function tests and a HIDA scan yesterday which showed not only nonvisualization of the gallbladder but no common bile duct filling suggestive of CBD obstruction. She is seen now in consultation for laparoscopic cholecystectomy. Review of Systems Review of Systems: All systems reviewed & are unremarkable except as noted in HPI and below Constitutional: Constitutional: Denies chills and Denies fever(s) Cardiovascular: Cardiovascular: Denies chest pain, Denies diaphoresis, Denies dyspnea and Denies paroxysmal nocturnal dyspnea Respiratory: Respiratory: Denies chest congestion, Denies cough and Denies dyspnea Integumentary/Breasts: Skin/Breast: Denies lesions and Denies rash Neurologic: Denies Sensory deficit (Neuro) [facility] Past Medical History Medical History (Updated 04/14/20 @ 11:21 by Dannie Dickey MD) Arthritis Chronic bronchitis Diabetes type 2, controlled DVT (deep venous thrombosis) 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 Was told no IV or BP in right arm due to damage done by DVT GERD (gastroesophageal reflux disease) Hx of migraines Hyperlipidemia Hypertension Hypothyroidism TIA (transient ischemic attack) Surgical History Surgical History History of left hip replacement Hx of tonsillectomy Social History Social History Smoking status: Never smoker Alcohol intake: former Substance use: never Gender identity (if verbalized by the patient): Female Spiritual care concerns: No Meds Home Medications and Allergies Home Medications Medication Instructions Recorded Confirmed Type Daily Probiotic 1 cap PO DAILY 08/05/19 04/13/20 History Onglyza 2.5 mg PO DAILY 08/05/19 04/13/20 History allopurinol 100 mg PO DAILY 08/05/19 04/13/20 History amlodipine 5 mg PO HS 08/05/19 04/13/20 History aspirin 81 mg PO DAILY 08/05/19 04/13/20 History biotin 1,000 mcg PO DAILY 08/05/19 04/13/20 Hi
--- NOTE | 2020-04-14 11:18 | WPDANESEPPF ---
Anes - Initial Pre Proc Eval Procedure: Operation Date: 04/14/20 08:30 Proposed Procedures p Esophagogastroduodenoscopy - Sebastián Logan MD Operation Date: 04/14/20 13:00 Proposed Procedures p Laparoscopic Cholecystectomy with Intra Operative Cholangiograms - Gary Urena MD Operation Date: 04/15/20 09:30 Proposed Procedures p Endoscopic Retro Cholangiopancreatogram - Sebastián Logan MD Date/Time: 04/14/20 11:18 Surgeon: Arianna Virgen PA-C Pre Op Diagnosis: Intractable pain/transaminitis/gastric wall thicke Patient Data Age: 84 Gender: F Height: 1.57 m Weight: 91.7 kg Last Vital Signs Temp 36.3 C L 04/14/20 08:12 Pulse 62 04/14/20 09:29 Resp 22 H 04/14/20 09:29 BP 136/64 04/14/20 09:29 Pulse Ox 98 04/14/20 09:29 Allergies Allergy/AdvReac Type Severity Reaction Status Date / Time propoxyphene AdvReac Severe NAUSEA Verified 04/13/20 04:06 latex AdvReac Intermediate RED Verified 04/13/20 04:06 BUMPS/ITCH naproxen AdvReac Intermediate NAUSEA/DIZZ Verified 04/13/20 04:06 INESS/RASH morphine AdvReac Mild RASH/ITCHIN Verified 04/13/20 04:06 G thiopental AdvReac Mild INCREASES Verified 04/13/20 04:06 CHOLESTEROL (REVERSE EFFECT) hydrocodone AdvReac Unknown NAUSEA/RASH Verified 04/13/20 04:06 /HEADACHE Home Medications Medication Instructions Recorded Confirmed Type Daily Probiotic 1 cap PO DAILY 08/05/19 04/13/20 History Onglyza 2.5 mg PO DAILY 08/05/19 04/13/20 History allopurinol 100 mg PO DAILY 08/05/19 04/13/20 History amlodipine 5 mg PO HS 08/05/19 04/13/20 History aspirin 81 mg PO DAILY 08/05/19 04/13/20 History biotin 1,000 mcg PO DAILY 08/05/19 04/13/20 History clopidogrel [Plavix] 75 mg PO DAILY 08/05/19 04/13/20 History levothyroxine 50 mcg PO DAILY 08/05/19 04/13/20 History multivitamin [Multiple Vitamins] 1 tablet PO DAILY 08/05/19 04/13/20 History omeprazole 40 mg PO DAILY 08/05/19 04/13/20 History propranolol 120 mg PO DAILY 08/05/19 04/13/20 History acetaminophen-codeine 1 tablet PO Q8H PRN #30 tablet 08/12/19 04/13/20 Rx [Tylenol-Codeine #3] cholecalciferol (vitamin D3) 25 mcg PO DAILY 04/13/20 04/13/20 History [Vitamin D3] Laboratory Tests 04/13/20 04/13/20 04/13/20 04:13 12:49 17:10 WBC RBC Hgb Hct MCV MCH MCHC RDW Plt Count MPV APTT Sodium Potassium Chloride Carbon Dioxide Anion Gap BUN Creatinine Estim Creat Clear Calc Estimated GFR Glucose POC Capillary Glucose 123 mg/dl H mg/dl 106 mg/dl mg/dl (65-105) (65-105) Calcium Total Bilirubin Direct Bilirubin AST ALT Alkaline Phosphatase Total Protein Albumin Hepatitis A IgM Ab Negative (Negative) Hep Bs Antigen Negative (Negative) Hep B Core IgM Ab Negative (Negative) Hepatitis C Ab Screen Negative (Negative) 04/13/20 04/14/20 04/14/20 21:19 05:11 05:11 WBC 8.1 K/mm3 K/mm3 (4.5-10.0) RBC 3.24 M/mm3 L M/mm3 (4.2-5.4) Hgb 10.4 g/dL L g/dL (12.0-15.0) Hct 32.1 % L % (37.0-47.0) MCV 99.1 fl fl (80-100) MCH 32.1 pg pg (26-34) MCHC 32.4 g/dl g/dl (32-36) RDW 13.6 % % (11.5-14.5) Plt Count 194 k/mm3 k/mm3 (150-375) MPV 10.3 fl fl (7.4-10.4) APTT Sodium 138 mmol/L mmol/L (137-145) Potassium 3.7 mmol/L mmol/L (3.4-5.0) Chloride 108 mmol/L H mmol/L (98-107) Carbon Dioxide 26 mmol/L mmol/L (22-30) Anion Gap 4 mmol/L L mmol/L (8-16) BUN 12 mg/dL D mg/dL
[2020-04-14] MEDS: LACTATED RINGERS 1,000 ML 30 ML IV CONT ×2 (11:31→13:13)
[2020-04-14] MEDS: ceFAZolin SODIUM 1 GM VIAL 2 GM IV PUSH (12:05)
[2020-04-14] MEDS: BUPIVACAINE/EPINEPHRINE 0.5% 10 ML VIAL 20 ML INFILTRATE (12:16)
--- NOTE | 2020-04-14 13:15 | PM.PROC ---
Procedure Note - Detailed Date of procedure: 04/14/20 Pre-op diagnosis: Acute cholecystitis, cholelithiasis Acute cholecystitis with cholelithiasis, with cystic duct obstruction Post-op diagnosis: same Procedure performed: Laparoscopic cholecystectomy with intraoperative cholangiogram Description of procedure: The patient was taken to surgery and induced into general anesthesia. The abdomen was prepped and draped. Trocars were placed in the usual fashion using 0.5% Marcaine with epinephrine and applied Medical optical trocars. A 5 millimeter camera was used. The gallbladder was very edematous and distended. There was a lot of evidence of acute inflammation. It was hypervascular as well. The gallbladder was decompressed with a laparoscopic aspirator. The cholecystotomy was closed with a Vicryl endo-loop. The gallbladder was then freed from the remaining adhesions. It was retracted anterosuperiorly. We exposed the cholecystohepatic triangle and dissected out the cystic duct and cystic artery.The gallbladder was dissected off the liver at its lower 3rd. Critical view was achieved. The cystic artery was securely clipped and divided. Cystic duct was dissected through most of its length. The cystic duct was clipped at the distal gallbladder. A small incision was made in the upper cystic duct with cystic duct scissors. The cholangiogram catheter was passed into the cystic duct. We then brought the C-arm fluoroscopy into the field. Intraoperative cholangiograms were attempted with C-arm fluoroscopy. Unfortunately, the catheter did not flow well and most of the contrast came out of the cystic duct. I then pulled C-arm fluoroscopy back and proceeded to obtain better cannulation of the cystic duct. During this process, the cystic duct from the gallbladder. I then grasped the cystic duct stump and created a new cystic ductotomy. I was able to pass the cholangiogram catheter and complete the cholangiogram with cine fluoroscopy. This showed essentially a normal cholangiogram with no evidence of common bile duct filling defects. There was prompt duodenal filling and no evidence of common bile duct injury. I discussed these results with the radiologist Dr. Hendricks. He was somewhat concerned of some narrowing of the distal common bile duct as it entered the duodenum although there was no evidence of stones or of occlusion of the common bile duct. The cholangiogram catheter was removed from the cystic duct. The cystic duct was then securely ligated with a Vicryl endo-loop. The gallbladder was then dissected free of its peritoneal attachments to the liver. Once completely freed, it was placed in an Endo-Catch bag and retrieved through the 10 11 epigastric trocar site. The epigastric trocar was then replaced. We reviewed the right upper quadrant and gallbladder fossa. It was irrigated and suctioned repeatedly. The gallbladder fossa on the liver was cauterized thoroughly to achieve good hemostasis. We then repeated the irrigation and suctioning to re-review the entire area of dissection. All looked good with no evidence of bleeding or bile leakage. We then evacuated CO2 and removed the trocar sleeves. All skin wounds were closed with subcuticular 4 O Monocryl skin suture. The wounds were dressed with Exofin surgical adhesive. The patient transferred to recovery in good condition. Sponge and needle counts were correct x2. Anesthesia: GETA and local (0.5% Marcaine with epinephrine) Surgeon: Gary Urena MD Line Maintainer Section: Carlo LINDQUIST Estimated blood loss (mL): 20 Drains: No Packing: No Pathology: yes (Gallbladder) Complications: None Condition: stable Disposition: PACU Findings: Chronic inflammation with some biliary ductal dilatation, cholangiogram showed prompt duodenal filling with no filling defects in the extrahepatic biliary system. Multiple stones in the gallbladder with slightly thickened gallbladder wall and a lot of edema in the ga
[2020-04-14 13:24] LABS: Glucose Point of Care 124 (65-105)
--- NOTE | 2020-04-14 14:05 | SUR.PHASEI ---
[id number] sbar faxed floor notified
--- NOTE | 2020-04-14 14:35 | PC.NURSE ---
Returned from OR.
--- NOTE | 2020-04-14 14:41 | PM.IMPN ---
Progress Note: A&P Assessment and Plan (1) Cholelithiasis and cholecystitis with obstruction: Code(s): K80.19 - Calculus of gallbladder with other cholecystitis with obstruction Status: Acute Assessment and Plan: RUQ/epigastric abdominal pain with a fairly sudden onset, associated nausea, and vomiting. She reported a known hx of gallstones. RUQ US demonstrated mildly dilated gallbladder up to 4.3cm with mild wall thickening, several shadowing gallstones at the neck and dependent wall of the gallbladder, and positive Romero's sign. CT abd/pelvis demonstrated gallbladder distention mildly enlarged common bile duct. HIDA scan demonstrated nonfilling biliary system consistent with high-grade common bile duct obstruction. Bilirubin including direct bilirubin, AST, and ALT were elevated. Zosyn was initiated and general surgery was consulted. She is POD #0 s/p laparoscopic cholecystectomy by Dr. Urena with intraoperative cholangiogram. The gallbladder was very edematous and distended intra-operatively with evidence of acute inflammation. No gallstones were seen on cholangiogram. Appreciate general surgery input. She reports that her prior pain has resolved and she only has mild post-op pain at this time. (2) Acute upper abdominal pain: Code(s): R10.10 - Upper abdominal pain, unspecified Status: Acute Assessment and Plan: Likely secondary to acute cholecystitis. Pain she was experiencing prior to admission has resolved and she only has post-op pain at this time. (3) Hypertension: Code(s): I10 - Essential (primary) hypertension Status: Acute Assessment and Plan: Blood pressures were reviewed and were elevated pre-operatively, likely due to stress and pain, but have improved. Continue prior to admission antihypertensives which include amlodipine and propranolol. (4) Diabetes type 2, controlled: Code(s): E11.9 - Type 2 diabetes mellitus without complications Status: Acute Assessment and Plan: Blood sugars were reviewed and are well-controlled. Check A1c. Home onglyza is on hold. Continue ACHS glucose monitoring, SSI, and hypoglycemia protocol. (5) Hypothyroidism: Code(s): E03.9 - Hypothyroidism, unspecified Status: Acute Assessment and Plan: Continue levothyroxine. Check TSH. (6) Transaminitis: Code(s): R74.0 - Nonspecific elevation of levels of transaminase and lactic acid dehydrogenase [LDH] Status: Acute Assessment and Plan: Likely secondary to acute cholecystitis. She is s/p cholecystectomy. Hepatitis panel was negative. Plan for repeat CMP tomorrow. Appreciate GI and general surgery input. (7) Gastric polyps: Code(s): K31.7 - Polyp of stomach and duodenum Status: Acute Assessment and Plan: CT abd/pelvis demonstrated gastric wall thickening. She underwent EGD which demonstrated gastric polyps (fundic gland type) which were benign in appearance. Cold forcep biopsies were obtained for pathology. Appreciate GI input. Await pathology. (8) Gastric wall thickening: Code(s): K31.89 - Other diseases of stomach and duodenum Status: Acute Assessment and Plan: Evaluated by EGD today. Polyps were identified with plan as above. Rapid urease/ARIANNA test will also be performed. Continue protonix. Pain is likely secondary to acute cholecystitis. Continue PPI. (9) Pancreatic cyst: Code(s): K86.2 - Cyst of pancreas Status: Acute Assessment and Plan: A 6mm cystic lesion in the body of the pancreas was visualized on CT abd/pelvis. The differential per radiology diagnosis includes pseudocyst, intraductal papillary mucinous neoplasm (IPMN), mucinous cystic neoplasm (MCN), and the less common serous cystadenoma and neuroendocrine tumor. Lipase was normal. Pt has no known hx of pancreatitis. Follow-up pancreas protocol CT or MRI in 1-2 years is recommended. She
[2020-04-14] MEDS: PANTOPRAZOLE 40 MG TABLET PO (15:04)
[2020-04-14] MEDS: PROPRANOLOL HCL 60 MG CAPSULE CR 120 MG PO (15:09)
[2020-04-14 16:29] LABS: Glucose Point of Care 153 (65-105)
[2020-04-14] MEDS: LACTATED RINGERS 1,000 ML 80 ML IV CONT (18:59)
[2020-04-14] MEDS: amLODIPine BESYLATE 5 MG TABLET PO (21:15)
[2020-04-14] MEDS: ENOXAPARIN 30 MG/0.3 ML SYRINGE SUB-Q (21:16)
[2020-04-15 05:57] VITALS: BP 124/40; PULSE 61; RESP 18; TEMP 36.9; O2SAT 93
[2020-04-15 05:59] LABS: Hematocrit 32.7 % (37.0-47.0); Hemoglobin 10.8 g/dL (12.0-15.0); Mean Corpuscular Hemoglobin 32.1 pg (26-34); Mean Corpuscular Volume 97.3 fl (80-100); Mean Platelet Volume 9.9 fl (7.4-10.4); Platelet Count Result 228 k/mm3 (150-375); Red Blood Count 3.36 M/mm3 (4.2-5.4); Red Cell Distribution Width 13.6 % (11.5-14.5); White Blood Count 12.6 K/mm3 (4.5-10.0)
[2020-04-15 06:06] LABS: Hemoglobin A1C 5.7 % (<5.7)
[2020-04-15 06:11] LABS: Alanine Aminotransferase 334 U/L (4-35); Albumin Level 3.2 g/dL (3.5-5.1); Alkaline Phosphatase 140 U/L (38-126); Anion Gap 6 mmol/L (8-16); Aspartate Amino Transferase 295 U/L (14-36); Bilirubin,Total 1.2 mg/dL (0.2-1.3); Blood Urea Nitrogen 11 mg/dL (7-17); Calcium 8.6 mg/dL (8.4-10.2); Carbon Dioxide 24 mmol/L (22-30); Chloride 106 mmol/L (98-107); Estimated CRCL calculation 45 ml/min; Estimated Glomerular Filt Rate 60; Glucose 135 mg/dL (65-105); Potassium 3.8 mmol/L (3.4-5.0); Sodium 136 mmol/L (137-145)
[2020-04-15 06:49] LABS: Thyroid Stimulating Hormone Reflex 0.575 uIU/mL (0.465-4.68)
[2020-04-15] MEDS: LEVOTHYROXINE SODIUM 50 MCG TABLET PO (06:51)
--- NOTE | 2020-04-15 07:01 | PM.PNGS ---
Progress Note: A&P Assessment and Plan (1) Cholelithiasis and cholecystitis with obstruction: Qualifiers: Cholelithiasis location: gallbladder Code(s): K80.19 - Calculus of gallbladder with other cholecystitis with obstruction Status: Acute Assessment and Plan: doing well after laparoscopic cholecystectomy yesterday. She may be discharged from my perspective. Hold Plavix another 2 days. Since her IV came out I will go ahead and start her on Augmentin. She should continue this for about 4 days after discharge. She is doing well. (2) Abnormal biliary HIDA scan: Code(s): R94.8 - Abnormal results of function studies of other organs and systems Status: Acute Assessment and Plan: Dr. Logan to see. Home if okay with GI and hospitalist. Subjective Subjective Date/Time Seen: 04/15/20 07:01 Post Op day: 1 Patient reports: no new complaints, feels better and other (Could not get her IV restarted when it came out last night.) Exam GI: Inspection: non-distended and incision ( healing well) GI Palp: Yes Soft to palpation and Yes Tenderness to palpation present (GI) ( mild appropriate tenderness) Auscultation: normal bowel sounds Objective Data Vital Signs Vital Signs: Vital Signs - 24 hr 04/14/20 08:12 04/14/20 09:09 04/14/20 09:19 Temperature 36.3 C L Pulse Rate 63 62 61 Respiratory Rate 20 18 20 Blood Pressure 148/51 H 96/64 L 140/57 L Pulse Oximetry 94 99 97 04/14/20 09:29 04/14/20 11:09 04/14/20 13:15 Temperature 36.4 C L 36.1 C L Pulse Rate 62 59 L 73 Respiratory Rate 22 H 20 20 Blood Pressure 136/64 128/56 L 131/56 L Pulse Oximetry 98 98 95 04/14/20 13:30 04/14/20 13:45 04/14/20 14:00 Temperature Pulse Rate 62 58 L 60 Respiratory Rate 18 16 16 Blood Pressure 159/66 H 179/79 H 137/70 Pulse Oximetry 100 97 93 04/14/20 14:15 04/14/20 15:09 04/14/20 15:33 Temperature 36.2 C L Pulse Rate 51 L 63 100 Respiratory Rate 11 L 12 Blood Pressure 169/66 H 126/62 Pulse Oximetry 98 100 09/09/20 20:29 04/15/20 05:57 Temperature 36.5 C 36.9 C Pulse Rate 62 61 Respiratory Rate 18 18 Blood Pressure 146/50 H 124/40 L Pulse Oximetry 94 93 Intake/Output Intake/Output: Intake & Output 04/12/20 04/13/20 04/14/20 04/15/20 23:59 23:59 23:59 23:59 Intake Total 1700 3030 240 Output Total 1500 1350 400 Balance 200 1680 -160 Meds/Results Medications: Active Medications Generic Name Dose Route Start Last Admin Trade Name Freq PRN Reason Stop Dose Admin Acetaminophen 500 mg 04/14/20 14:22 Tylenol Tablet PO Q6H PRN Mild Pain (1-3) or Fever Acetaminophen/Codeine Phosphate 1 tab 04/14/20 14:22 Tylenol #3 PO Q4H PRN Pain Rated 4-6 Acetaminophen/Codeine Phosphate 2 tab 04/14/20 14:22 04/15/20 03:26 Tylenol #3 PO 2 tab Q6H PRN Administration Pain Rated 7-10 Allopurinol 100 mg 04/15/20 09:00 Zyloprim PO DAILY [facility] Amlodipine Besylate 5 mg 04/13/20 21:00 04/14/20 21:15 Norvasc PO 5 mg HS SARA Administration Amoxicillin/Clavulanate Potassium 1 tablet 04/15/20 09:00 Augmentin 875-125 Mg Tab PO Q12HR SARA Aspirin 81 mg 04/15/20 09:00 Aspirin Chewable PO DAILY [facility] Dextrose 12.5 gm 04/13/20 16:34 Dextrose 50% Syringe IV PUSH PRN PRN Hypoglycemia Protocol Diphenhydramine HCl 25 mg 04/14/20 14:22 Benadryl Inj IV PUSH Q6H PRN Itching Fentanyl Citrate 50 mcg 04/13/20 06:02 04/13/20 06:32 Sublimaze IV PUSH 50 mcg Q2H PRN Administration Pain Rated 7-10 Fentanyl Citrate 25 mcg 04/14/20 13:47 Sublimaze IV PUSH Q2M PRN Pain Rated 4-6 Glucagon 1 mg 04/13/20 16:34 Glucagon For Inj IM PRN PRN Hypoglycemia Protocol Glucose 15 gm 04/13/20 16:34 Glutose 15 PO PRN PRN Hypoglycemia Protocol Dextrose 1,000 mls @ 100 mls/hr 04/13/20 16:34
--- NOTE | 2020-04-15 07:55 | WPDGIPROGNO ---
Progress Note: A&P Additional Plan Patient comfortable this morning. Status post lap choly yesterday. Patient denies any significant abdominal pain as tolerated liquid diet without difficulty. Physical exam reveals no obvious icterus. Lungs are clear. Heart without murmur. Abdomen is obese soft nontender with no organomegaly. Labs reveal WBC 12. Hemoglobin stable. total bilirubin 1.1, AST 295, ALT 334, alk-phos 140. Intraoperative cholangiogram suggest mild stricture ring of the distal common bile duct Impression 1. Cholecystitis. Now status post cholecystectomy .Surgical findings noted. Many gallstones Removed. 2. Abnormal intraoperative cholangiogram. This suggest distal common bile duct stricture ring. May be related to passage of recent gallstone. Would recommend MRCP as an outpatient. Outpatient follow-up. Continue to monitor LFTs as an outpatient till that resolved. Subjective Date/time seen: 04/15/20 07:55 Objective Data Vital Signs Vital Signs: Vital Signs - 24 hr 04/14/20 08:12 04/14/20 09:09 04/14/20 09:19 Temperature 97.4 F L Pulse Rate 63 62 61 Respiratory Rate 20 18 20 Blood Pressure 148/51 H 96/64 L 140/57 L Pulse Oximetry 94 99 97 04/14/20 09:29 04/14/20 11:09 04/14/20 13:15 Temperature 97.5 F L 97 F L Pulse Rate 62 59 L 73 Respiratory Rate 22 H 20 20 Blood Pressure 136/64 128/56 L 131/56 L Pulse Oximetry 98 98 95 04/14/20 13:30 04/14/20 13:45 04/14/20 14:00 Temperature Pulse Rate 62 58 L 60 Respiratory Rate 18 16 16 Blood Pressure 159/66 H 179/79 H 137/70 Pulse Oximetry 100 97 93 04/14/20 14:15 04/14/20 15:09 04/14/20 15:33 Temperature 97.1 F L Pulse Rate 51 L 63 100 Respiratory Rate 11 L 12 Blood Pressure 169/66 H 126/62 Pulse Oximetry 98 100 04/14/20 20:29 04/15/20 05:57 Temperature 97.7 F 98.5 F Pulse Rate 62 61 Respiratory Rate 18 18 Blood Pressure 146/50 H 124/40 L Pulse Oximetry 94 93 Intake/Output Intake/Output: Intake & Output 04/12/20 04/13/20 04/14/20 09/10/20 23:59 23:59 23:59 23:59 Intake Total 1700 3030 240 Output Total 1500 1350 400 Balance 200 1680 -160 Meds/Results Medications: Active Medications Generic Name Dose Route Start Last Admin Trade Name Freq PRN Reason Stop Dose Admin Acetaminophen 500 mg 04/14/20 14:22 Tylenol Tablet PO Q6H PRN Mild Pain (1-3) or Fever Acetaminophen/Codeine Phosphate 1 tab 04/14/20 14:22 Tylenol #3 PO Q4H PRN Pain Rated 4-6 Acetaminophen/Codeine Phosphate 2 tab 04/14/20 14:22 04/15/20 03:26 Tylenol #3 PO 2 tab Q6H PRN Administration Pain Rated 7-10 Allopurinol 100 mg 04/15/20 09:00 Zyloprim PO DAILY [facility] Amlodipine Besylate 5 mg 04/13/20 21:00 04/14/20 21:15 Norvasc PO 5 mg HS SARA Administration Amoxicillin/Clavulanate Potassium 1 tablet 04/15/20 09:00 Augmentin 875-125 Mg Tab PO Q12HR SARA Aspirin 81 mg 04/15/20 09:00 Aspirin Chewable PO DAILY [facility] Dextrose 12.5 gm 04/13/20 16:34 Dextrose 50% Syringe IV PUSH PRN PRN Hypoglycemia Protocol Diphenhydramine HCl 25 mg 04/14/20 14:22 Benadryl Inj IV PUSH Q6H PRN Itching Fentanyl Citrate 50 mcg 04/13/20 06:02 04/13/20 06:32 Sublimaze IV PUSH 50 mcg Q2H PRN Administration Pain Rated 7-10 Fentanyl Citrate 25 mcg 04/14/20 13:47 Sublimaze IV PUSH Q2M PRN Pain Rated 4-6 Glucagon 1 mg 04/13/20 16:34 Glucagon For Inj IM PRN PRN Hypoglycemia Protocol Glucose 15 gm 04/13/20 16:34 Glutose 15 PO PRN PRN Hypoglycemia Protocol Dextrose 1,000 mls @ 100 mls/hr 04/13/20 16:34 Dextrose 5% 1,000 Ml IVPB PRN PRN Hypoglycemia Protocol Insulin Aspart 2 - 5 units 04/13/20 17:00 04/14/20 17:22 Novolog SUB-Q Not Given TIDWM [facility] Protocol Levothyroxine Sodium 50 mcg 04/14/20 06:30 04/15
[2020-04-15 08:58] VITALS: PULSE 61
[2020-04-15] MEDS: PROPRANOLOL HCL 60 MG CAPSULE CR 120 MG PO (08:58)
[2020-04-15] MEDS: PANTOPRAZOLE 40 MG TABLET PO (08:58)
[2020-04-15] MEDS: allopurinoL 100 MG TABLET PO (08:58)
[2020-04-15] MEDS: ASPIRIN 81 MG CHEWABLE TABLET PO (08:59)
[2020-04-15] MEDS: CHOLECALCIFEROL 1,000 UNITS TABLET 1000 UNITS PO (09:00)
[2020-04-15] MEDS: AMOXICILLIN/CLAVULANATE K 875-125 MG TAB 1 TABLET PO (09:01)
--- NOTE | 2020-04-15 10:28 | WPDANESPN ---
Anes - Prog Note Post-Op Date/Time: 04/15/20 10:28 Cardiovascular status: normal Respiratory status: normal Airway patency: baseline Mental status: baseline Post-Op hydration status: normal Vital Signs: Last Vital Signs Temp 36.9 C 04/15/20 05:57 Pulse 61 04/15/20 08:58 Resp 18 04/15/20 05:57 BP 124/40 L 04/15/20 05:57 Pulse Ox 93 04/15/20 05:57 Pain Score (VAS): 10/13 I/O: Intake & Output 04/14/20 04/15/20 04/15/20 23:59 07:59 15:59 Intake Total 880 240 240 Output Total 500 400 Balance 380 -160 240 Laboratory Tests 04/15/20 05:43 04/15/20 05:43 04/14/20 04/14/20 04/14/20 10:02 13:20 16:21 WBC RBC Hgb Hct MCV MCH MCHC RDW Plt Count MPV Sodium Potassium Chloride Carbon Dioxide Anion Gap BUN Creatinine Estim Creat Clear Calc Estimated GFR Glucose POC Capillary Glucose 124 H 153 H Hemoglobin A1c Calcium Total Bilirubin AST ALT Alkaline Phosphatase Total Protein Albumin TSH (Reflex) Blood Type A Positive Antibody Screen Negative 04/15/20 04/15/20 04/15/20 05:43 05:43 05:43 WBC 12.6 H RBC 3.36 L Hgb 10.8 L Hct 32.7 L MCV 97.3 MCH 32.1 MCHC 33.0 RDW 13.6 Plt Count 228 MPV 9.9 Sodium Potassium Chloride Carbon Dioxide Anion Gap BUN Creatinine Estim Creat Clear Calc Estimated GFR Glucose POC Capillary Glucose Hemoglobin A1c 5.7 Calcium Total Bilirubin AST ALT Alkaline Phosphatase Total Protein Albumin TSH (Reflex) 0.575 Blood Type Antibody Screen 04/15/20 05:43 WBC RBC Hgb Hct MCV MCH MCHC RDW Plt Count MPV Sodium 136 L Potassium 3.8 Chloride 106 Carbon Dioxide 24 Anion Gap 6 L BUN 11 Creatinine 0.90 Estim Creat Clear Calc 45 Estimated GFR 60 Glucose 135 H POC Capillary Glucose Hemoglobin A1c Calcium 8.6 Total Bilirubin 1.2 AST 295 H ALT 334 H Alkaline Phosphatase 140 H Total Protein 6.0 L Albumin 3.2 L TSH (Reflex) Blood Type Antibody Screen Post-procedural complaints: none Patient Feedback: Patient satisfied with anesthetic care.
[2020-04-15 12:08] LABS: Glucose Point of Care 136 (65-105)
[2020-04-15 12:25] VITALS: O2SAT 96
--- NOTE | 2020-04-15 14:02 | PM.DS ---
DS: Admitting Diagnosis Admitting Diagnosis Admitting Diagnosis: Acute cholecystitis with gallstones with obstructi DS: Discharge Diagnosis Discharge Diagnosis (1) Cholelithiasis and cholecystitis with obstruction: Qualifiers: Cholelithiasis location: gallbladder Code(s): K80.19 - Calculus of gallbladder with other cholecystitis with obstruction Status: Acute Assessment and Plan: Discharge Summary (Date of service 04/15/20): Mrs. Iraheta is an 84 y.o. female with PMH significant for TIA, HLD, HTN, hypothyroidism, T2DM who presented to the emergency department for the evaluation of RUQ/epigastric abdominal pain with a fairly sudden onset, associated nausea, and vomiting. She reported a known hx of gallstones. RUQ US demonstrated mildly dilated gallbladder up to 4.3cm with mild wall thickening, several shadowing gallstones at the neck and dependent wall of the gallbladder, and positive Romero's sign. CT abd/pelvis demonstrated gallbladder distention mildly enlarged common bile duct. HIDA scan demonstrated nonfilling biliary system consistent with high-grade common bile duct obstruction. Bilirubin including direct bilirubin, AST, and ALT were elevated. Zosyn was initiated and general surgery was consulted. She underwent laparoscopic cholecystectomy by Dr. Urena with intraoperative cholangiogram. The gallbladder was very edematous and distended intra-operatively with evidence of acute inflammation. No gallstones were seen on cholangiogram. She was seen by GI and underwent EGD for evaluation of gastric wall thickening on CT abd/pelvis. Gastric polpys were identified and removed. Her pain resolved following cholecystectomy. She felt much better and requested to go home. She was discharged in stable condition 04/15/20. (2) Acute upper abdominal pain: Code(s): R10.10 - Upper abdominal pain, unspecified Status: Resolved Assessment and Plan: Resolved following cholecystectomy. (3) Hypertension: Code(s): I10 - Essential (primary) hypertension Status: Acute Assessment and Plan: Blood pressures were reviewed and were elevated pre-operatively, likely due to stress and pain, but improved. Prior to admission antihypertensives amlodipine and propranolol were continued. (4) Diabetes type 2, controlled: Code(s): E11.9 - Type 2 diabetes mellitus without complications Status: Acute Assessment and Plan: Blood sugars were reviewed and are well-controlled. Hemoglobin A1c was 5.7. (5) Hypothyroidism: Code(s): E03.9 - Hypothyroidism, unspecified Status: Acute Assessment and Plan: TSH was 0.575. Levothyroxine was continued. (6) Transaminitis: Code(s): R74.0 - Nonspecific elevation of levels of transaminase and lactic acid dehydrogenase [LDH] Status: Acute Assessment and Plan: Likely secondary to acute cholecystitis. She is s/p cholecystectomy. Hepatitis panel was negative. She was given a lab order for repeat CMP within 1 week. (7) Gastric polyps: Code(s): K31.7 - Polyp of stomach and duodenum Status: Acute Assessment and Plan: CT abd/pelvis demonstrated gastric wall thickening. She underwent EGD which demonstrated gastric polyps (fundic gland type) which were benign in appearance. Cold forcep biopsies were obtained for pathology. She will need to follow-up with gastroenterology. (8) Gastric wall thickening: Code(s): K31.89 - Other diseases of stomach and duodenum Status: Acute Assessment and Plan: Evaluated by EGD. Polyps were identified. Rapid urease/ARIANNA test was performed. Omeprazole was continued. (9) Pancreatic cyst: Code(s): K86.2 - Cyst of pancreas Status: Acute Assessment and Plan: A 6mm cystic lesion in the body of the pancreas was visualized on CT abd/pelvis. The differential per radiology diagnosis includes pseudocyst, in
--- NOTE | 2020-04-15 14:37 | PC.NURSE ---
Influenza vaccine ordered per patient request; upon time to administer, patient stated she would rather discuss administration with PCP and refused administration.
== END 2020-04-15 14:50 | disposition home health service (06) | DRG 418 ==
LOC: ANHED 06:04 → ANH3MED 06:26
PROVIDERS: Family Medicine; Internal Medicine; Internal Medicine Gastroenterology; Physician Assistant; Surgery; Admitting Provider Hospitalist; Emergency Provider Emergency Medicine; PCP Family Medicine; Visit Provider Hospitalist
PROC: 0DJ08ZZ Inspection of Upper Intestinal Tract, Via Natural or Artificial Opening Endoscopic (ICD-10-PCS; CPT 43235; principal; 2020-04-14 08:30)
PROC: 0FT44ZZ Resection of Gallbladder, Percutaneous Endoscopic Approach (ICD-10-PCS; CPT 47562; principal; 2020-04-14 13:00)
DX: K80.19 Calculus of gallbladder with other cholecystitis with obstruction (principal); K86.2 Cyst of pancreas; E27.8 Other specified disorders of adrenal gland; K31.7 Polyp of stomach and duodenum; K31.89 Other diseases of stomach and duodenum; R93.2 Abnormal findings on diagnostic imaging of liver and biliary tract; K21.9 Gastro-esophageal reflux disease without esophagitis; R74.0 Nonspecific elevation of levels of transaminase and lactic acid dehydrogenase [LDH]; I25.10 Atherosclerotic heart disease of native coronary artery without angina pectoris; I10 Essential (primary) hypertension; E11.9 Type 2 diabetes mellitus without complications; E78.5 Hyperlipidemia, unspecified; J42 Unspecified chronic bronchitis; Z96.642 Presence of left artificial hip joint; Z23 Encounter for immunization; Z79.899 Other long term (current) drug therapy; Z79.82 Long term (current) use of aspirin; Z86.718 Personal history of other venous thrombosis and embolism; Z86.73 Personal history of transient ischemic attack (TIA), and cerebral infarction without residual deficits
CPT/HCPCS: 36415; 74177; 74300; 76705; 78226; 80053; 80074; 80076; 83036; 83690; 84443; 85025; 85027; 85730; 86850; 86900; 86901; 87081; 88304; 88305; 93005; 96361; 96365; 96366; 96375; 96376; 99285; A9270; A9537; C1713; G0378; J0131; J0690; J1100; J1650; J2250; J2370; J2405; J2543; J2704; J2710; J3010; J7030; J7040; J7120; Q9966; Q9967

== ENCOUNTER 2020-05-04 09:37 | Outpatient (CLI) | payer MEDICARE, SELFPAY ==
--- NOTE | ~2020-05-04 | MM_ITS ---
EXAMINATION: MM screening julieth BI w tricia HISTORY: Screening mammogram TECHNIQUE: Craniocaudal and mediolateral oblique 3-D tomosynthesis images were obtained and synthetic 2-D images were generated. CAD analysis was submitted and interpreted. COMPARISON: 12/23/2018, 12/21/2017, 10/20/2016 BREAST PARENCHYMAL COMPOSITION: The breasts are almost entirely fatty. FINDINGS: Scattered benign-appearing calcifications are present. There is no evidence of suspicious m ass, calcification, or architectural distortion to suggest malignancy in either breast. There has bee n no suspicious interval change. IMPRESSION: 1. No mammographic evidence of malignancy. 2. Recommend routine screening mammography while the patient remains in good health. BI-RADS Category 2: Benign finding(s). Reviewed, dictated and finalized at location A. IMPRESSION: 1. No mammographic evidence of malignancy. 2. Recommend routine screening mammography while the patient remains in good he alth. BI-RADS Category 2: Benign finding(s).
== END 2020-05-04 09:38 | disposition home or self-care (01) ==
PROVIDERS: PCP Family Medicine; Visit Provider Family Medicine
DX: Z12.31 Encounter for screening mammogram for malignant neoplasm of breast (principal)
CPT/HCPCS: 77063; 77067

== ENCOUNTER 2020-09-01 10:12 | Outpatient (CLI) | payer MEDICARE, SELFPAY ==
--- NOTE | ~2020-09-01 | XR_ITS ---
EXAMINATION: XR chest 2V DATE: 09/01/2020 11:03 INDICATION: Pleurisy TECHNIQUE: PA and lateral views of the chest were obtained. COMPARISON: Chest radiograph dated 04/10/19 FINDINGS: Chronic moderate biapical pleural-parenchymal scarring. Unchanged pattern of mild peripheral reticula r opacities in the bilateral upper and lower lung zones. No new airspace opacities, pleural effusion or pneumothorax. The cardiomediastinal silhouette is normal. Mild thoracic kyphosis with mild to mode rate spondylosis. IMPRESSION: 1. Chronic biapical pleural-parenchymal scarring and mild scattered peripheral reticular opacities co nsistent with chronic interstitial lung disease. Reviewed, dictated and finalized at location B. ED STATES ATTORNEY IMPRESSION: 1. Chronic biapical pleural-parenchymal scarring and mild scattered peripheral reticular opacities consistent with chronic interstitial lung disease.
--- NOTE | ~2020-09-01 | CT_ITS ---
EXAMINATION: CT abdomen pelvis w con DATE: 09/01/2020 10:57 INDICATION: Abdominal pain TECHNIQUE: Computed tomography (CT) of the abdomen and pelvis was performed with 100 mL Omnipaque-350 intravenous contrast. Automated exposure control and iterative reconstruction technique were employe d. The dose-length product was 1042.87 mGy-cm. COMPARISON: None FINDINGS: Decrease in mild peripheral reticular opacities at the bilateral lower lung zones most likely combina tion of chronic interstitial fibrosis and mild atelectasis. Heart size is normal. No pericardial or p leural effusion. A few low-attenuation likely hepatic cysts, the largest measuring 1.5 cm. A few scat tered hepatic and splenic calcific lesions consistent with old granulomatous disease. Cholecystectomy clips at the gallbladder fossa. No significant interval change in a 5 mm cystic lesion at the body o f the pancreas. A couple low density left renal cysts the largest measuring 2.8 cm. Right kidney is n ormal. No interval change in nodular thickening of the bilateral adrenal glands most likely either ad renal hyperplasia or multiple small adenomas. Normal retrocecal appendix. No abnormal bowel wall thic kening or obstruction. Tiny fat-containing umbilical hernia. Bladder is normal. The uterus is not ninfa ntified and has likely been surgically resected. No free intraperitoneal gas or fluid. No pathologica lly enlarged abdominal or pelvic lymphadenopathy. Mild lumbar levocurvature with severe spondylosis. Left total hip arthroplasty. IMPRESSION: 1. No acute intra-abdominal/pelvic process. 2. No interval change in a 5 mm cystic lesion in the body of the pancreas with differential as previo usly detailed. Recommend 2 year follow-up pancreas protocol pre and postcontrast MRI or CT. 3. Unchanged nodular thickening of the bilateral adrenal glands most likely either adrenal hyperplasi a or small adenomas. Reviewed, dictated and finalized at location B. 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 No acute intra-abdominal/pelvic process. 2. No interval change in a 5 mm cystic lesion in the body of the pancreas with differential as previously detailed. Recommend 2 year follow-up pancreas protoc ol pre and postcontrast MRI or CT. 3. Unchanged nodular thickening of the bilateral adrenal glands most likely eit her adrenal hyperplasia or small adenomas.
[2020-09-01 10:47] LABS: Estimated Glomerular Filt Rate 47
== END 2020-09-01 10:13 | disposition home or self-care (01) ==
PROVIDERS: PCP Family Medicine; Visit Provider Family Medicine
DX: R09.1 Pleurisy (principal); R10.9 Unspecified abdominal pain
CPT/HCPCS: 71046; 74177; Q9967

== ENCOUNTER 2020-12-10 12:30 | Outpatient (CLI) | payer MEDICARE, SELFPAY ==
--- NOTE | 2020-12-15 16:42 | P.PCNPFT_ITS ---
PFT Procedure Performed PFT Procedure Performed Spirometry with Pre/Post Bronchodilator Plethysmography (Lung Vol) Diffusing Cap (DLCO) Flow Vol Loop PFT Interpretation This is a pulmonary function test with pre and post-bronchodilator spirometry, plethysmography and diffusing capacity. The test was performed and results interpreted in accordance with the 2019 and 2005 ATS/ERS Task Force guidelines respectively using the Global Lung Function Initiative-2012 reference equations. Patient demonstrated good effort and cooperation. Reproducibility criteria were met. The quality of the pre bronchodilator spirometry maneuver was Grade A and post bronchodilator spirometry maneuver was Grade A. Findings: Spirometry: Contour the inspiratory and expiratory flow tracing are normal. The pre bronchodilator FVC is 2.12 L, 89% predicted. The pre bronchodilator FEV1 is 1.73 L, 96% predicted. The FEV1: FVC ratio is 82%. The post bronchodilator FVC is 2.17 L, representing a 2% increase. The post bronchodilator FEV1 is 1.56 L, representing a 10% decrease. Plethysmography: The total lung capacity is 3.69 L, 75% predicted. The functional residual capacity is 2.06 L, 73% predicted. The residual volume is 1.43 L, 60% predicted. Diffusing capacity: The absolute diffusion capacity is 14.7, 79% predicted. T he diffusing capacity corrected for alveolar volume is 4.21, 102% predicted. Impression: There is a mild restrictive ventilatory abnormality with a normal FEV1. The spirometry is normal without evidence of an obstructive abnormality. There is no significant improvement after inhaling a single dose of albuterol. The diffusing capacity is normal. There are no prior studies for comparison
== END 2020-12-10 12:31 | disposition home or self-care (01) ==
PROVIDERS: PCP Family Medicine; Visit Provider Internal Medicine Critical Care Medicine
DX: R06.00 Dyspnea, unspecified (principal)
CPT/HCPCS: 94060; 94726; 94729

== ENCOUNTER 2020-12-29 07:49 | Outpatient (CLI) | payer MEDICARE, SELFPAY ==
--- NOTE | ~2020-12-29 | XR_ITS ---
EXAMINATION: XR barium swallow modified DATE: 12/29/2020 08:41 INDICATION: Shortness of breath, unspecified TECHNIQUE: Modified barium esophagram was performed by myself to administered fluoroscopy, in conjun ction with speech pathologist who administered barium in varying consistencies as per speech patholog ist documentation. This was recorded on tape. A single fluoroscopic spot image was recorded. The DAP for this procedure was 1.2 Gycm2. Fluoroscopy exposure time was 1.9 minutes. FINDINGS: Oral stage: Adequate function. Pharyngeal phase: Adequate function. Laryngeal penetration: None. Aspiration: None. Laryngeal sensitivity: Present. IMPRESSION: Normal modified barium swallow. Please refer to speech pathologist findings and specific feeding recommendations. Reviewed, dictated and finalized at location A.
--- NOTE | 2020-12-29 09:31 | STOPEVAL ---
MODIFIED BARIUM SWALLOW EVALUATION: Thank you for referring Devon Iraheta to [facility].? Attending Provider: Karthik Ulloa MD Outpatient Past Medical History Past Medical History Source of Past Medical History Patient Neurological History Hx Transient Ischemic Attacks (TIA) Yes Respiratory History Hx Pneumonia Yes Gastrointestinal History Hx Gastroesophageal Reflux Disease Yes Evaluation Information Problem Diagnosis dysphagia Onset 3-4 years Subjective Information pleasant and able to provide Query Text:As Reported By Patient/ her own medical information Family Modified Barium Swallow Evaluation Recent Swallowing History Reports Dysphagia Yes: I choke sometimes Onset of Dysphagia 3-4 years ago History of Dysphagia No Other Related History TIA's History of Pneumonia Yes: last time several years ago Reported Difficult Consistencies Thin Liquids,Solids Intake Method Prior to Swallow Oral Evaluation Diet Prior to Swallow Evaluation Regular, Level 7 Liquid Consistency Prior to Swallow Thin (0) Evaluation Dentition Comments missing back lower teeth Consistency Barium Pill Other Amount 1/2 tablet Method of Presentation Spoon Oral Preparatory Symptoms None Oral Phase Symptoms None Pharyngeal Phase Symptoms None Severity of Vallecular Residue None - 0% No Residue Severity of Pyriform Sinus Residue None - 0% No Residue 8 Point Laryngeal Penetration-Aspiration Material Does Not Enter Airway Scale Cervical/Esophageal Symptoms None Solid Consistency Other Amount cracker Method of Presentation Spoon Oral Preparatory Symptoms None Oral Phase Symptoms None Pharyngeal Phase Symptoms None Severity of Vallecular Residue None - 0% No Residue Severity of Pyriform Sinus Residue None - 0% No Residue 8 Point Laryngeal Penetration-Aspiration Material Does Not Enter Airway Scale Cervical/Esophageal Symptoms None Mixed Consistency Method of Presentation Spoon Oral Preparatory Symptoms None Oral Phase Symptoms None Pharyngeal Phase Symptoms None Severity of Vallecular Residue None - 0% No Residue Severity of Pyriform Sinus Residue None - 0% No Residue 8 Point Laryngeal Penetration-Aspiration Material Does Not Enter Airway Scale Cervical/Esophageal Symptoms None Pureed Consistency Method of Presentation Spoon Oral Preparatory Symptoms None Oral Phase Symptoms None Pharyngeal Phase Symptoms None Severity of Vallecular Residue None - 0% No Residue Severity of Pyriform Sinus Residue
== END 2020-12-29 07:50 | disposition home or self-care (01) ==
LOC: ANHIMG 07:51
PROVIDERS: PCP Family Medicine; Visit Provider Internal Medicine Critical Care Medicine
DX: R06.00 Dyspnea, unspecified (principal)
CPT/HCPCS: 92611

== ENCOUNTER 2021-01-25 08:39 | Outpatient (CLI) | payer MEDICARE, SELFPAY ==
--- NOTE | 2021-01-25 10:41 | PCRCNOTE ---
PT UNABLE TO COMPLETE METHACHOLINE. THIS IS DUE TO A DROP IN FEV1 OF 29% FROM PRE FVL AFTER INHALING SALINE. POST ALBUTEROL NEB TREATMENT GIVEN WITH MUCH IMPROVEMENT. PT. PULMONARY OFFICE WAS NOTIFIED, MEY TOOK MSG TO RELAY TO DR DUONG. TL WAS ORDERING
== END 2021-01-25 08:40 | disposition home or self-care (01) ==
PROVIDERS: PCP Family Medicine; Visit Provider Internal Medicine Critical Care Medicine
DX: R06.00 Dyspnea, unspecified (principal); R94.2 Abnormal results of pulmonary function studies
CPT/HCPCS: 94070; J7674

== ENCOUNTER 2021-05-10 10:10 | Outpatient (CLI) | payer MEDICARE, SELFPAY ==
--- NOTE | ~2021-05-10 | MM_ITS ---
EXAMINATION: MM screening [facility] BI w tricia HISTORY: Screening mammogram TECHNIQUE: Craniocaudal and mediolateral oblique 3-D tomosynthesis images were obtained and synthetic 2-D images were generated. CAD analysis was submitted and interpreted. COMPARISON: 05/04/2020, 12/25/2018, 12/21/2017 BREAST PARENCHYMAL COMPOSITION: The breasts are almost entirely fatty. FINDINGS: There is no evidence of suspicious mass, calcification, or architectural distortion to sugg est malignancy in either breast. There has been no suspicious interval change. IMPRESSION: 1. No mammographic evidence of malignancy. 2. Recommend routine screening mammography while the patient remains in good health. BI-RADS Category 1: Negative Reviewed, dictated and finalized at location A. IMPRESSION: 1. No mammographic evidence of malignancy. 2. Recommend routine screening mammography while the patient remains in good he alth. BI-RADS Category 1: Negative
== END 2021-05-10 10:11 | disposition home or self-care (01) ==
LOC: ANHIMG 10:11
PROVIDERS: PCP Family Medicine; Visit Provider Family Medicine
DX: Z12.31 Encounter for screening mammogram for malignant neoplasm of breast (principal)
CPT/HCPCS: 77063; 77067

== ENCOUNTER → 2021-07-01 09:25 | Outpatient (CLI) | payer MEDICARE, SELFPAY ==
--- NOTE | ~2021-07-01 | US_ITS ---
EXAMINATION: US abdomen limited DATE: 07/01/2021 09:55 INDICATION: Right upper quadrant pain TECHNIQUE: Multiple grayscale and Doppler ultrasound images of the abdomen were obtained. COMPARISON: CT, 09/01/2020 FINDINGS: There is a stable 5 mm cystic lesion in the body of the pancreas. Cysts of the otherwise no rmal-appearing liver measure up to 1.2 cm. No surface nodularity. Normal hepatopetal flow in the main portal vein. The gallbladder is surgically absent. The normal common bile duct measures 5 mm. IMPRESSION: 1. No sonographic correlate for the patient's symptoms. 2. Stable 5 mm cystic lesion of the pancreatic body. Differential is as previously described. Follow- up pancreas protocol CT or MRI is due in one year. Reviewed, dictated and finalized at location A. RHEUMATOLOGY IMPRESSION: 1. No sonographic correlate for the patient's symptoms. 2. Stable 5 mm cystic lesion of the pancreatic body. Differential is as previou shae described. Follow-up pancreas protocol CT or MRI is due in one year.
== END ==
PROVIDERS: PCP Internal Medicine; Visit Provider Nurse Practitioner
DX: R10.11 Right upper quadrant pain (principal); K86.2 Cyst of pancreas
CPT/HCPCS: 76705

== ENCOUNTER 2022-03-30 17:17 | Emergency (ER) | payer MEDICARE, SELFPAY ==
--- NOTE | ~2022-03-30 | CT_ITS ---
EXAMINATION: CT knee LT wo con DATE: 03/30/2022 19:52 INDICATION: Left knee pain TECHNIQUE: High resolution computed tomography (CT) of the left knee was performed without intravenou s contrast. Additional sagittal and coronal reconstructions were performed. Automated exposure contro l and iterative reconstruction technique were employed. The dose-length product was 519.42 mGy-cm. COMPARISON: None FINDINGS: Diffuse osteopenia. Mild anterior subluxation of the tibia relative to the femoral condyles and narro wing of the space between the anterior aspect of the intercondylar notch and the intercondylar eminen ce. The anterior cruciate ligament to extend suggesting possibility of prior anterior cruciate ligame nt tear. No fracture. Tricompartmental osteoarthritis with small marginal osteophytes in all 3 compar tments and at least moderate severity joint space narrowing in the medial and lateral compartments wh ich could be underestimated on nonweightbearing imaging. No left knee joint effusion. Scattered perip heral vascular calcifications along the popliteal artery extending to the arteries in the proximal ca lf. Soft tissues are otherwise unremarkable. IMPRESSION: 1. No left knee joint effusion or acute osseous abnormality. 2. 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 3. Slight anterior subluxation of the tibia relative to the femoral condyles suggesting possibility o f prior anterior cruciate ligament tear. Evaluation of the ligaments is however significantly limited on CT and would correlate with physical exam. Reviewed, dictated and finalized at location A. IMPRESSION: 1. No left knee joint effusion or acute osseous abnormality. 2. 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 3. Slight anterior subluxation of the tibia relative to the femoral condyles torres ggesting possibility of prior anterior cruciate ligament tear. Evaluation of th e ligaments is however significantly limited on CT and would correlate with phy sical exam.
--- NOTE | ~2022-03-30 | XR_ITS ---
EXAMINATION: XR knee LT min 4V DATE: 03/30/2022 18:02 INDICATION: Posterior left knee pain and swelling TECHNIQUE: Anteroposterior, 2 oblique and crosstable lateral views of the left knee were obtained COMPARISON: None. FINDINGS: Alignment is normal. No fracture. At least mild tricompartmental osteoarthritis with small marginal o steophytes in all 3 compartments. At least mild joint space narrowing the medial and lateral compartm ents although this could be underestimated on nonweightbearing imaging. No joint effusion/layering li pohemarthrosis. Soft tissues are unremarkable. IMPRESSION: 1. At least mild tricompartmental osteoarthritis at the left knee. No joint effusion or acute osseous abnormality. Reviewed, dictated and finalized at location A. IMPRESSION: 1. At least mild tricompartmental osteoarthritis at the left knee. No joint eff usion or acute osseous abnormality.
[2022-03-30 17:26] VITALS: BP 150/79; PULSE 67; RESP 18; TEMP 36.4; O2SAT 98
--- NOTE | 2022-03-30 17:45 | ED.GENADULT ---
HPI - General Adult General Chief complaint: Extremity Problem,Nontraumatic Stated complaint: WEAKNESS, UNABLE TO AMBULATE Time Seen by Provider: 03/30/22 17:28 History of Present Illness HPI narrative: 86-year-old female presenting to the emergency department for evaluation of left knee pain. Patient states he has had left-sided posterior knee pain for the last few days. Patient states when she was walking she felt her left knee give out. Patient did not fall the ground and not injure herself but patient states due to the posterior knee pain she is unable to ambulate at this time. Patient denies any chest pain or shortness breath. Patient denies any calf pain or tenderness. Patient has lower extremity edema. Related Data Home Medications Medication Instructions Recorded Confirmed clopidogrel 75 mg tablet (Plavix) 75 mg PO DAILY 08/05/19 01/03/22 amoxicillin 500 mg tablet 500 mg PO Q12H PRN 06/21/21 01/03/22 cholecalciferol (vitamin D3) 25 25 mcg PO DAILY 06/21/21 01/03/22 mcg (1,000 unit) tablet saxagliptin 2.5 mg tablet (Onglyza) 2.5 mg PO DAILY 06/21/21 01/03/22 sitagliptin 100 mg tablet (Januvia) 100 mg PO DAILY 06/21/21 01/03/22 Saccharomyces boulardii 250 mg 250 mg PO DAILY 06/29/21 01/03/22 capsule (Daily Probiotic (S. boulardii)) aspirin 81 mg tablet,delayed 81 mg PO DAILY 06/29/21 01/03/22 release cetirizine 10 mg tablet (Zyrtec) 5 mg PO DAILY PRN 06/29/21 01/03/22 Allergies Allergy/AdvReac Type Severity Reaction Status Date / Time propoxyphene AdvReac Severe NAUSEA Verified 02/14/22 11:36 latex AdvReac Intermediate RED Verified 02/14/22 11:36 BUMPS/ITCH naproxen AdvReac Intermediate NAUSEA/DIZZ Verified 02/14/22 11:36 INESS/RASH morphine AdvReac Mild RASH/ITCHIN Verified 02/14/22 11:36 G thiopental AdvReac Mild INCREASES Verified 02/14/22 11:36 CHOLESTEROL (REVERSE EFFECT) hydrocodone AdvReac Unknown NAUSEA/RASH Verified 02/14/22 11:36 /HEADACHE Review of Systems Review of Systems: CONSTITUTIONAL: Denies fever, chills, or sweats. EYES: Denies visual changes, redness, or discharge. ENT: Denies rhinorrhea, congestion, sore throat, or otalgia. CARDIOVASCULAR: Denies chest pain, palpitations, or edema. RESPIRATORY: Denies cough or dyspnea. GASTROINTESTINAL: Denies abdominal pain, nausea, vomiting, or diarrhea. GENITOURINARY: Denies dysuria or hematuria. SKIN: Denies rash or itching. MUSCULOSKELETAL: Left knee pain NEUROLOGIC: Denies headache, numbness, or weakness. [facility] Past Medical History Medical History (Updated 03/30/22 @ 20:15 by Fausto Sharma MD) Allergies Arthritis Aspiration into lower respiratory tract Breast lump Bruising Chest pain Chronic bronchitis Chronic cough COVID-19 Diabetes Diabetes type 2, controlled Difficulty breathing Difficulty swallowing DVT (deep venous thrombosis) 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 Was told no IV or BP in right arm due to damage done by DVT Gallbladder disorder GERD (gastroesophageal reflux disease) Headache Heartburn High cholesterol History of blood clots History of breast lump Hx of migraines Hyperlipidemia Hypertension Hypothyroidism IBS (irritable bowel syndrome) Kidney disease Migraines Painful joint Swollen feet Thyroid disorder TIA (transient ischemic attack) Tired Weakness Surgical History Surgical History History of left hip replacement History of left hip replacement Hx laparoscopic cholecystectomy Hx of hysterectomy 1974 Hx of tonsillectomy Family History Family History Father Alcoholism Hypertension Heart disease Mother Cancer Heart disease Cerebrovascular accident Sibling Cancer Heart disease Other Heart disease Social History Social History Smoking status: Never smoker Alcohol intake: for
--- NOTE | 2022-03-30 19:35 | PC.NURSE ---
Patient unable to bare any weight on her left leg due to knee pain. MD made aware
--- NOTE | 2022-03-30 20:18 | PC.NURSE ---
patient states knee immobilizer is causing more pain. patient advised to take it home and wear for comfort if needed.
== END 2022-03-30 20:26 | disposition home or self-care (01) ==
PROVIDERS: Emergency Provider Emergency Medicine; PCP Internal Medicine
DX: M25.562 Pain in left knee (principal); E11.9 Type 2 diabetes mellitus without complications; E78.5 Hyperlipidemia, unspecified; I10 Essential (primary) hypertension; K21.9 Gastro-esophageal reflux disease without esophagitis; K58.9 Irritable bowel syndrome, unspecified; N28.9 Disorder of kidney and ureter, unspecified; E07.9 Disorder of thyroid, unspecified; M17.12 Unilateral primary osteoarthritis, left knee; Z86.16 Personal history of COVID-19; Z86.718 Personal history of other venous thrombosis and embolism; Z86.73 Personal history of transient ischemic attack (TIA), and cerebral infarction without residual deficits; Z96.642 Presence of left artificial hip joint; Z79.84 Long term (current) use of oral hypoglycemic drugs; Z79.82 Long term (current) use of aspirin; R93.6 Abnormal findings on diagnostic imaging of limbs
CPT/HCPCS: 73564; 73700; 99284

== ENCOUNTER 2023-01-16 15:06 | Outpatient (CLI) | payer MEDICARE, SELFPAY ==
--- NOTE | ~2023-01-16 | CT_ITS ---
EXAMINATION: CT abdomen pelvis wo/w con DATE: 01/16/2023 15:49 INDICATION: Pancreatic cyst. TECHNIQUE: Computed tomography (CT) of the abdomen and pelvis was performed without and with 100 cc O mnipaque 350 intravenous contrast. The dose-length product was 2263.99 mGy-cm. Automated exposure con trol and iterative reconstruction technique were employed. COMPARISON: CT dated 09/01/2020 FINDINGS: There are coarse peripheral interstitial densities, consistent with chronic interstitial fi brosis. No pneumothorax. Heart size normal. No significant pleural or pericardial effusion. Status po st cholecystectomy. There are calcified granulomas of the spleen. Nonobstructive bowel pattern. There is a left hip arthroplasty. There is atherosclerosis of the aorta without evidence for aneurysm or d issection. Stable 5 mm cyst of the pancreatic body, most likely benign. Stable nodular low density ad renal thickening, most likely adrenal hyperplasia or adenomatous change. There are liver and left dick al cysts. There is a left total hip arthroplasty. Is osteoarthritis of the right hip. There is a smal l fat-containing umbilical hernia. No abnormal pelvic masses or fluid collections. Nonobstructive bow el pattern. There is mild diffuse thickening of the gastric wall normal appendix. Severe lumbar spond ylosis. IMPRESSION: 1. No acute abdominal abnormality. No significant interval change. Reviewed, dictated and finalized at location []
[2023-01-16 15:42] LABS: Estimated Glomerular Filt Rate 53
== END 2023-01-16 15:07 | disposition home or self-care (01) ==
LOC: ANHIMG 15:07
PROVIDERS: PCP Internal Medicine; Visit Provider Nurse Practitioner
DX: K86.2 Cyst of pancreas (principal)
CPT/HCPCS: 74178; Q9967

== ENCOUNTER 2023-07-10 14:25 | Outpatient (CLI) | payer MEDICARE, SELFPAY ==
--- NOTE | ~2023-07-10 | MM_ITS ---
EXAMINATION: MM screening [facility] BI w tricia HISTORY: Screening mammogram TECHNIQUE: Craniocaudal and mediolateral oblique 3-D tomosynthesis images were obtained and synthetic 2-D images were generated. CAD analysis was submitted and interpreted. COMPARISON: 05/10/2021, 05/04/2020, 12/25/2018 BREAST PARENCHYMAL COMPOSITION: The breasts are almost entirely fatty. FINDINGS: No suspicious mass, calcification, or architectural distortion are identified in either johnie ast to suggest malignancy. There has been no suspicious interval change. IMPRESSION: 1. No mammographic evidence of malignancy. 2. Recommend routine screening mammography while the patient remains in good health. BI-RADS Category 1: Negative Reviewed, dictated and finalized at location A. [facility] IMPRESSION: 1. No mammographic evidence of malignancy. 2. Recommend routine screening mammography while the patient remains in good he alth. BI-RADS Category 1: Negative
== END 2023-07-10 14:26 | disposition home or self-care (01) ==
LOC: ANHIMG 14:28
PROVIDERS: PCP Nurse Practitioner; Visit Provider Nurse Practitioner
DX: Z12.31 Encounter for screening mammogram for malignant neoplasm of breast (principal)
CPT/HCPCS: 77063; 77067